=== PATIENT | male | born 1955 | race Caucasian/White ===

== ENCOUNTER 2017-10-11 09:24 | Inpatient (IN) ==
--- NOTE | 2017-10-11 10:20 | XR ---
EXAM DATE: 10/11/2017 10:04 AM EDT AGE/SEX: 62 years / Male INDICATIONS: . Chest pain. CLINICAL DATA: This is the patient's initial encounter. Patient reports that signs and symptoms have been present for 2 days and indicates a pain score of 8/10. MEDICAL/SURGICAL HISTORY: Chronic obstructive pulmonary disease. Myocardial infarction. . Card iac stent. COMPARISON: DEL, XR CHEST PA AND LAT, 01/09/2017. . FINDINGS: Linear atelectatic changes right base. The left lung is clear. The heart and pulmonary vascularity are normal. The portion of the bony skeleton visualized is unremarkable. CONCLUSION: Atelectatic changes right base, stable in the interval. Electronically signed by: David Lyons MD 10/11/2017 10:18 AM EDT
[2017-10-11 11:49] LABS: Anion Gap 12 meq/L (5-15); Blood Urea Nitrogen 13 mg/dL (7-18); Calcium 9.1 mg/dL (8.5-10.1); Carbon Dioxide 24.2 meq/L (21.0-32.0); Chloride 104 meq/L (98-107); Glomerular Filtration Rate 73 mL/min (>89); Glucose,Random 111 mg/dL (74-106); Potassium 3.9 meq/L (3.5-5.1); Sodium 140 meq/L (136-145)
[2017-10-11] MEDS ORDERED: Aspirin 325 MG Tablet PO ONE (12:14)
[2017-10-11 12:28] LABS: Albumin 3.9 g/dL (3.4-5.0); Magnesium 2.2 mg/dL (1.5-2.5)
[2017-10-11 12:30] LABS: Total Protein 7.4 g/dL (6.4-8.2)
[2017-10-11 13:02] LABS: Baso % (Auto) 0.5 % (0.0-2.0); Eos # (Auto) 0.1 th/mm3 (0.0-0.4); Eos % (Auto) 1.1 % (0.0-4.0); Hematocrit 37.1 % (39.0-51.0); Hemoglobin 13.1 gm/dL (13.0-17.0); Lymph # (Auto) 1.3 th/mm3 (1.0-4.8); Lymph % (Auto) 15.5 % (9.0-44.0); Mean Corpuscular HGB Conc 35.2 % (32.0-36.0); Mean Corpuscular Hemoglobin 29.6 pg (27.0-34.0); Mean Corpuscular Volume 84.1 fL (80.0-100.0); Mean Platelet Volume 8.5 fL (7.0-11.0); Mono # (Auto) 0.7 th/mm3 (0.0-0.9); Mono % (Auto) 7.9 % (0.0-8.0); Neut # (Auto) 6.5 th/mm3 (1.8-7.7); Platelet Count 214 th/mm3 (150-450); Red Blood Count 4.42 mil/mm3 (4.50-5.90); Red Cell Distribution Width 14.4 % (11.6-17.2); White Blood Count 8.6 th/mm3 (4.0-11.0)
[2017-10-11 13:11] LABS: Activated Partial Thrombo Time 21.4 sec (24.3-30.1); Prothrombin Time 10.4 sec (9.8-11.6)
--- NOTE | 2017-10-11 13:16 | ED ---
HPI General Chief Complaint: Chest Pain Stated Complaint: chest pain Time Seen by Provider: 10/11/17 12:09 Source: patient Mode of arrival: ambulatory Limitations: no limitations History of Present Illness HPI narrative: 62-year-old male states that he had chest pain yesterday and took 2 nitroglycerin this morning when it did not go away and he had a take 3 more he elected to come in. He denies any other concurrent complaints. 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 He states he took a baby aspirin this morning. Quality is pressure. Severity is moderate. He states that nitroglycerin does help his pain. He states his last cardiac workup was a heart catheterization in 2014 when he had a stent placed. MD complaint: chest pain Complete Quality Measures for STEMI Alert Patients STEMI Alert: No Onset (ago): day(s) Duration: intermittent Related Data Home Medications Medication Instructions Recorded Confirmed acetaminophen [Tylenol Extra 1,000 mg PO Q6H PRN 10/11/17 10/11/17 Strength] albuterol sulfate [Ventolin HFA] 2 puff INHALATION Q6H PRN 10/11/17 10/11/17 alprazolam [Xanax] 0.25 mg PO TID PRN 10/11/17 10/11/17 aspirin [Harriet Chewable Aspirin] 81 mg PO DAILY 10/11/17 10/11/17 budesonide-formoterol [Symbicort] 2 puff INHALATION Q12H 10/11/17 10/11/17 cholecalciferol (vitamin D3) 2,000 unit PO DAILY 10/11/17 10/11/17 [Vitamin D3] furosemide [Lasix] 80 mg PO DAILY 10/11/17 10/11/17 ipratropium-albuterol 3 ml INHALATION Q4-6H PRN 10/11/17 10/11/17 isosorbide mononitrate 30 mg PO BID 10/11/17 10/11/17 lactobacillus combination no.4 1 cap PO DAILY 10/11/17 10/11/17 [Probiotic] metoprolol succinate [Toprol XL] 50 mg PO DAILY 10/11/17 10/11/17 nitroglycerin 1 patch TRANSDERMAL DAILY 10/11/17 10/11/17 nitroglycerin [Nitrostat] 0.4 mg SUBLINGUAL Q5-15M PRN 10/11/17 10/11/17 oxybutynin chloride 5 mg PO TID 10/11/17 10/11/17 pantoprazole 40 mg PO DAILY 10/11/17 10/11/17 polyethylene glycol 3350 [Miralax] 17 g PO DAILY PRN 10/11/17 10/11/17 potassium chloride 10 meq PO DAILY 10/11/17 10/11/17 simvastatin 40 mg PO QPM 10/11/17 10/11/17 tamsulosin 0.4 mg PO BID 10/11/17 10/11/17 tiotropium bromide [Spiriva 2 puff INHALATION DAILY 10/11/17 10/11/17 Respimat] topiramate [Topamax] 25 mg PO DAILY 10/11/17 10/11/17 Allergies Allergy/AdvReac Type Severity Reaction Status Date / Time ciprofloxacin Allergy Severe Itching Verified 10/11/17 09:29 lamotrigine Allergy Severe Rash Verified 10/11/17 09:29 tramadol Allergy Severe Anaphylaxis Verified 10/11/17 12:14 gabapentin AdvReac Mild Itching Verified 10/11/17 12:14 Review of Systems ROS: all other systems reviewed are negative [facility] Social History Social History Substance History: No History of Abuse Second Hand Smoke Exposure: No Smoking Status: Former smoker Tobacco Type: Cigarettes How Often Do You Have a Drink Containing Alcohol: 2 to 3 times a week Recent Travel in [facility] within the Last 8 Weeks: No Recent Out of Country Travel within the Last 8 Weeks: No Immunization History Tetanus Immunization: Unsure Hx Influenza Vaccine This Season: No Exam Narrative Exam Narrative: GENERAL: 62 y/o male in no apparent distress SKIN: Focused skin assessment warm/dry. HEAD: Atraumatic. Normocephalic. EYES: Pupils equal and round. No scleral icterus. No injection or drainage. ENT: No nasal bleeding or discharge. Mucous membranes pink and moist. NECK: Trachea midline. CARDIOVASCULAR: Regular rate and rhythm. RESPIRATORY: No accessory muscle use. Clear to auscultation. Breath sounds equal bilaterally. GASTROINTESTINAL: Abdomen soft, non-tender, nondistended. MUSCULOSKELETAL: No obvious deformities. No clubbing. No cyanosis. NEUROLOGICAL: Awake and alert. Motor grossly within normal limits. Normal speech. PSYCHIATRIC: Appropriate mood and affect; insight and judgment normal. Course Reevaluation(s) Reevaluation #1: Patient feeling better, agrees to chest pain center observation Initial Documented Vital Signs Temperature 98.2 F 10/11/17 09:27 Pulse Rate 104 H 10/11/17 09:27 Respiratory Rate 20 10/11/17 09:27 Blood Pressure 136/69 10/11/17 09:27 Pulse Oximetry 95 10/11/17 09:27 Last Documented Vital Signs Temperature 97.6 F 10/11/17 12:14 Pulse Rate 85 10/11/17 13:57 Respiratory Rate 16 10/11/17 13:57 Blood Pressure 138/69 10/11/17 13:57 Pulse Oximetry 97 10/11/17 13:57 Medical Decision Making MDM Narrative Medical decision making narrative: Will check blood work, imaging and dose with aspirin and nitroglycerin and reevaluate Medical Screen Exam Complete: Yes Emergency Medical Condition: Yes Differential Diagnosis Differential Diagnosis: ACS, musculoskeletal, stent occlusion, gastritis Lab Data Lab results reviewed: Yes I reviewed the patient's lab results. Result diagrams: 10/11/17 12:25 10/11/17 10:33 Lab Results 10/11/17 10/11/17 10/11/17 Range/Units 10:33 10:33 12:25 WBC 8.6 (4.0-11.0) th/mm3 RBC 4.42 L (4.50-5.90) mil/mm3 Hgb 13.1 (13.0-17.0) gm/dL Hct 37.1 L (39.0-51.0) % MCV 84.1 (80.0-100.0) fL MCH 29.6 (27.0-34.0) pg MCHC 35.2 (32.0-36.0) % RDW 14.4 (11.6-17.2) % Plt Count 214 (150-450) th/mm3 MPV 8.5 (7.0-11.0) fL Neut % (Auto) 75.0 H (16.0-70.0) % Lymph % (Auto) 15.5 (9.0-44.0) % Worth % (Auto) 7.9 (0.0-8.0) % Eos % (Auto) 1.1 (0.0-4.0) % Baso % (Auto) 0.5 (0.0-2.0) % Neut # (Auto) 6.5 (1.8-7.7) th/mm3 Lymph # (Auto) 1.3 (1.0-4.8) th/mm3 Worth # (Auto) 0.7 (0.0-0.9) th/mm3 Eos # (Auto) 0.1 (0.0-0.4) th/mm3 Baso # (Auto) 0.0 (0.0-0.2) th/mm3 WBC Differential . Differential Comment Auto diff final PT (9.8-11.6) sec INR Ratio APTT (24.3-30.1) sec Sodium 140 (136-145) meq/L Potassium 3.9 (3.5-5.1) meq/L Chloride 104 (98-107) meq/L Carbon Dioxide 24.2 (21.0-32.0) meq/L Anion Gap 12 (5-15) meq/L BUN 13 (7-18) mg/dL Creatinine 1.03 (0.60-1.30) mg/dL Estimated GFR 73 L (>89) mL/min Random Glucose 111 H (74-106) mg/dL Calcium 9.1 (8.5-10.1) mg/dL Magnesium 2.2 (1.5-2.5) mg/dL Total Bilirubin 0.6 (0.2-1.0) mg/dL Direct Bilirubin 0.1 (0.0-0.2) mg/dL Indirect Bilirubin 0.5 (0.0-0.8) mg/dL AST 20 (15-37) U/L ALT 37 (12-78) U/L Alkaline Phosphatase 59 (45-117) U/L Total Creatine Kinase 63 (39-308) U/L Troponin I Less than 0.02 L (0.02-0.05) ng/mL B-Natriuretic Peptide (0-100) pg/mL Total Protein 7.4 (6.4-8.2) g/dL Albumin 3.9 (3.4-5.0) g/dL 10/11/17 10/11/17 Range/Units 12:25 12:25 WBC (4.0-11.0) th/mm3 RBC (4.50-5.90) mil/mm3 Hgb (13.0-17.0) gm/dL Hct (39.0-51.0) % MCV (80.0-100.0) fL MCH (27.0-34.0) pg MCHC (32.0-36.0) % RDW (11.6-17.2) % Plt Count (150-450) th/mm3 MPV (7.0-11.0) fL Neut % (Auto) (16.0-70.0) % Lymph % (Auto) (9.0-44.0) % Worth % (Auto) (0.0-8.0) % Eos % (Auto) (0.0-4.0) % Baso % (Auto) (0.0-2.0) % Neut # (Auto) (1.8-7.7) th/mm3 Lymph # (Auto) (1.0-4.8) th/mm3 Worth # (Auto) (0.0-0.9) th/mm3 Eos # (Auto) (0.0-0.4) th/mm3 Baso # (Auto) (0.0-0.2) th/mm3 WBC Differential Differential Comment PT 10.4 (9.8-11.6) sec INR 1.0 Ratio APTT 21.4 L (24.3-30.1) sec Sodium (136-145) meq/L Potassium (3.5-5.1) meq/L Chloride (98-107) meq/L Carbon Dioxide (21.0-32.0) meq/L Anion Gap (5-15) meq/L BUN (7-18) mg/dL Creatinine (0.60-1.30) mg/dL Estimated GFR (>89) mL/min Random Glucose (74-106) mg/dL Calcium (8.5-10.1) mg/dL Magnesium (1.5-2.5) mg/dL Total Bilirubin (0.2-1.0) mg/dL Direct Bilirubin (0.0-0.2) mg/dL Indirect Bilirubin (0.0-0.8) mg/dL AST (15-37) U/L ALT (12-78) U/L Alkaline Phosphatase (45-117) U/L Total Creatine Kinase (39-308) U/L Troponin I (0.02-0.05) ng/mL B-Natriuretic Peptide 12 (0-100) pg/mL Total Protein (6.4-8.2) g/dL Albumin (3.4-5.0) g/dL Imaging Data Attestation: I personally reviewed and interpreted this imaging study as follows : Radiologist's impression: Chest X-Ray 10/11/17 09:30 CONCLUSION: Atelectatic changes right base, stable in the interval. Discharge Plan Discharge Disposition Patient Disposition: 30 Still Patient Discharge Details Diagnosis: Chest pain Physicians Team ED Provider: Damari Wilson Primary Care Provider: NON STAFF,PROVIDER Attending Provider: Jarrett Watters Discharge Interventions Interventions: Vital Signs Last Done: 10/11/17 13:57 Status ED Status: Admitted Observation Patient
[2017-10-11] MEDS ORDERED: Polyethylene Glycol 3350 17 GM Packet PO PRN (16:34)
[2017-10-11] MEDS ORDERED: Nitroglycerin SL (Override) 0.4 MG Tab SL PRN (16:34)
[2017-10-11] MEDS ORDERED: Heparin Drip 25,000 UNIT/250 ML BAG IV.CONT PRN (17:07)
[2017-10-11] MEDS ORDERED: Heparin 10,000 UNITS/10 ML Vial (for IV use) IV.PUSH STA (17:07)
[2017-10-11] MEDS ORDERED: TIROFIBAN BOLUS IV.PUSH ONE (17:10)
[2017-10-11] MEDS ORDERED: Morphine Sulfate Inj 8 MG/ML Vial IV.PUSH ONE (17:11)
[2017-10-11] MEDS ORDERED: Morphine Sulfate Inj 8 MG/ML Vial IV.PUSH PRN (17:13)
[2017-10-11] MEDS ORDERED: Aspirin 325 MG Tablet PO SCH (17:15)
[2017-10-11] MEDS ORDERED: fentaNYL Citrate Inj 100 MCG/2 ML Ampul IV.PUSH SCH (17:15)
[2017-10-11 17:44] LABS: Creatine Kinase 57 U/L (39-308)
--- NOTE | 2017-10-11 18:31 | P.HPIM ---
History of Present Illness Primary Care Physician: PROVIDER NON STAFF History of Present Illness: Mr. Jackson is a 62-year-old male. He has a past history of coronary artery disease and 5 stents. COPD is present at baseline. No recent exacerbation of COPD. He comes into the emergency department with complaints of approximately 36 hours of unstable angina with recurrent central chest pain which is relieved quickly by nitro arrest but keeps coming back. Is a strong family history of both parents and a brother having coronary artery disease. When seen in the ER he still has intermittent chest pain. Potential for heart cath tonight or tomorrow morning based on symptoms. Fluid nitroglycerin, heparin, and morphine are being initiated to attempt pain control. - Diagnosis (1) Unstable angina (2) Chest pain Inpatient Certification: I certify that the inpatient services were ordered in accordance with Medicare regulations governing the order. This includes certification that hospital inpatient services are reasonable and necessary and in the case of services not specified as inpatient-only under 42 CFR 419.22(n), that they are appropriately provided as inpatient services in accordance to with the 2-midnight benchmark under 43 CFR 412.3(e) Estimated Total Length of Stay (Days): 2 Plans for Post Hospital Care: Home Review of Systems Constitutional: No fevers, no chills no night sweats, no fatigue, no weakness Eyes: No eye pain, no blurry vision, no loss of vision ENT: No sore throat, no ear pain, no rhinorrhea Cardiovascular: Positive chest pain, no tachycardia, no palpitations, no shortness of breath, no syncope Respiratory: No wheezing, no cough, no shortness of breath Gastrointestinal: No abdominal pain, no black tarry stools, no bright red blood per rectum, no vomiting, no diarrhea Musculoskeletal: No joint pain, no muscle cramps, no stiffness Integumentary: No rash, no ulcers, no drainage Neurologic: No sensory loss, no loss of motor function, no dizziness Psychiatric: No behavioral changes, no hallucinations, no suicidal ideations [facility] - History History Provided By: Patient, Family Member - Medical History Medical History: Medical History (Last Updated 10/11/17 @ 18:24 by Aayush Good MD) COPD (chronic obstructive pulmonary disease) Coronary artery disease Old [place] (myocardial infarction) - Surgical History Surgical History: Surgical History (Last Updated 10/11/17 @ 18:25 by Aayush Good MD) History of coronary artery stent placement - Family History Family History: Family History (Last Updated 10/11/17 @ 18:26 by Aayush Good MD) Mother Coronary artery disease Brother Coronary artery disease Father Coronary artery disease - Tobacco History Second Hand Smoke Exposure: No Tobacco Use In Past 30 Days: No Smoking Status: Former smoker Tobacco Type: Cigarettes - Alcohol History How Often Do You Have a Drink Containing Alcohol: 2 to 3 times a week - Substance Use History Substance History: No History of Abuse - Travel History Recent Travel in the [place] Within the Last 8 Weeks: No Recent Travel Out of the Country Within the Last 8 Weeks: No - Immunization History Tetanus Immunization: Unsure Hx Influenza Vaccine This Season: No Medications and Allergies Active Medications: Active Medications Acetaminophen (Tylenol) 1,000 mg PO Q6H PRN PRN Reason: Pain/Temp Elevation Al Hydroxide/Mg Hydroxide (Milk Of [place]) 30 ml PO Q12H PRN PRN Reason: Mild Constipation Albuterol (Duoneb Neb (Prn)) 1 ampul NEB Q4HR NEB PRN PRN Reason: SHORTNESS OF BREATH/WHEEZING Albuterol (Duoneb Neb (Prn)) ampul INH Q4-6H PRN PRN Reason: Shortness Of Breath Alprazolam (Xanax) 0.25 mg PO TID PRN PRN Reason: Anxiety Aspirin (Aspirin) 325 mg PO DAILY ON LICENSE OF [facility] Aspirin (Aspirin Chew) 81 mg PO DAILY ON LICENSE OF [facility] Aspirin (Aspirin) 325 mg PO [employer] SAL[employer] ON LICENSE OF [facility] Stop: 10/15/17 17:14 Budesonide/Formoterol Fumarate (Symbicort 160/4.5 Mcg Inh) 2 puff INH Q12H ON LICENSE OF [facility] Fentanyl Citrate (Fentanyl Inj) 50 mcg IV.PUSH [employer] BIB Stop: 10/15/17 17:14 Furosemide (Lasix) 80 mg PO DAILY ON LICENSE OF [facility] Heparin Sodium (Porcine) (Heparin Inj) 4,000 units IV.PUSH NOW STA Stop: 10/11/17 17:08 Sodium Chloride (Ns Inj) 1,000 mls @ 100 mls/hr IV.CONT .Q10H ON LICENSE OF [facility] Tirofiban/Sodium Chloride 2, (825 mcg/ Syringe/Bag) 56.5 mls @ 678 mls/hr IV.PUSH ONCE ONE Stop: 10/11/17 17:11 Tirofiban/Sodium Chloride (Aggrastat Inj) 12,500 mcg in 250 mls @ 0 mls/hr IV.CONT .Q0M BIB; Protocol Heparin Sodium/Dextrose (Heparin/D5w 25,000 U/250 Ml) 25,000 unit in 250 mls @ 0 mls/hr IV.CONT TITRATE PRN; Protocol PRN Reason: Per Protocol Nitroglycerin/Dextrose (Nitroglycerin Drip Premix) 50 mg in 250 mls @ 0 mls/hr IV.CONT TITRATE PRN; Protocol PRN Reason: Per Protocol Metoprolol Succinate (Toprol Xl) 50 mg PO DAILY ON LICENSE OF [facility] Midazolam HCl (Versed Inj) 1 mg IV.PUSH [employer] SAL[employer] BIB Stop: 10/15/17 17:14 Morphine Sulfate (Morphine Inj) 5 mg IV.PUSH ONCE ONE Stop: 10/11/17 17:12 Morphine Sulfate (Morphine Inj) 5 mg IV.PUSH Q2H PRN PRN Reason: CHEST PAIN Nitroglycerin (Nitrostat Sl) 0.4 mg SL Q5M PRN PRN Reason: CHEST PAIN Last Admin: 10/11/17 16:44 Dose: 0.4 mg Nitroglycerin (Nitrostat Sl (Override)) 0.4 mg SL Q5-15M PRN PRN Reason: Chest Pain Non-Formulary Medication (Cholecalciferol (Vitamin D3) [Vitamin D3]) 2,000 unit PO DAILY ON LICENSE OF [facility] Non-Formulary Medication (Lactobacillus Combination No.4 [Probiotic]) 1 cap PO DAILY ON LICENSE OF [facility] Non-Formulary Medication (Simvastatin [Simvastatin]) 40 mg PO QPM ON LICENSE OF [facility] Non-Formulary Medication (Tiotropium [place] [Spiriva Respimat]) 2 puff INHALATION DAILY ON LICENSE OF [facility] Non-Formulary Medication (Albuterol Sulfate) 2 puff INHALATION Q6H PRN PRN Reason: Shortness Of Breath Ondansetron HCl (Zofran Inj) 4 mg IV.PUSH Q6H PRN PRN Reason: NAUSEA Ondansetron HCl (Zofran Inj) 4 mg IV.PUSH Q6H PRN PRN Reason: NAUSEA OR VOMITING Oxybutynin Chloride (Ditropan) 5 mg PO TID ON LICENSE OF [facility] Pantoprazole Sodium (Protonix) 40 mg PO DAILY ON LICENSE OF [facility] Polyethylene Glycol (Miralax) 17 gm PO DAILY PRN PRN Reason: Constipation Potassium Chloride (Klor-Con 10) 10 meq PO DAILY ON LICENSE OF [facility] Sodium Chloride (Ns Flush) 2 ml IV.FLUSH PRN PRN PRN Reason: FLUSH AFTER USING IV ACCESS Sodium Chloride (Ns Flush) 2 ml IV.FLUSH BID ON LICENSE OF [facility] Tamsulosin HCl (Flomax) 0.4 mg PO BID ON LICENSE OF [facility] Topiramate (Topamax) 25 mg PO DAILY ON LICENSE OF [facility] Allergies Allergy/AdvReac Type Severity Reaction Status Date / Time ciprofloxacin Allergy Severe Itching Verified 10/11/17 09:29 lamotrigine Allergy Severe Rash Verified 10/11/17 09:29 tramadol Allergy Severe Anaphylaxis Verified 10/11/17 12:14 gabapentin AdvReac Mild Itching Verified 10/11/17 12:14 Home Medications Medication Instructions Recorded Confirmed Type acetaminophen [Tylenol Extra 1,000 mg PO Q6H PRN 10/11/17 10/11/17 History Strength] albuterol sulfate [Ventolin HFA] 2 puff INHALATION Q6H PRN 10/11/17 10/11/17 History alprazolam [Xanax] 0.25 mg PO TID PRN 10/11/17 10/11/17 History aspirin [Harriet Chewable Aspirin] 81 mg PO DAILY 10/11/17 10/11/17 History budesonide-formoterol [Symbicort] 2 puff INHALATION Q12H 10/11/17 10/11/17 History cholecalciferol (vitamin D3) 2,000 unit PO DAILY 10/11/17 10/11/17 History [Vitamin D3] furosemide [Lasix] 80 mg PO DAILY 10/11/17 10/11/17 History ipratropium-albuterol 3 ml INHALATION Q4-6H PRN 10/11/17 10/11/17 History isosorbide mononitrate 30 mg PO BID 10/11/17 10/11/17 History lactobacillus combination no.4 1 cap PO DAILY 10/11/17 10/11/17 History [Probiotic] metoprolol succinate [Toprol XL] 50 mg PO DAILY 10/11/17 10/11/17 History nitroglycerin 1 patch TRANSDERMAL DAILY 10/11/17 10/11/17 History nitroglycerin [Nitrostat] 0.4 mg SUBLINGUAL Q5-15M PRN 10/11/17 10/11/17 History oxybutynin chloride 5 mg PO TID 10/11/17 10/11/17 History pantoprazole 40 mg PO DAILY 10/11/17 10/11/17 History polyethylene glycol 3350 [Miralax] 17 g PO DAILY PRN 10/11/17 10/11/17 History potassium chloride 10 meq PO DAILY 10/11/17 10/11/17 History simvastatin 40 mg PO QPM 10/11/17 10/11/17 History tamsulosin 0.4 mg PO BID 10/11/17 10/11/17 History tiotropium bromide [Spiriva 2 puff INHALATION DAILY 10/11/17 10/11/17 History Respimat] topiramate [Topamax] 25 mg PO DAILY 10/11/17 10/11/17 History Exam Vital signs: Vital Signs 10/11/17 09:27 10/11/17 12:14 10/11/17 13:57 Temperature 98.2 F 97.6 F Pulse Rate 104 H 79 85 Respiratory Rate 20 16 16 Blood Pressure 136/69 138/69 Pulse Oximetry 95 97 10/11/17 15:42 Temperature Pulse Rate 85 Respiratory Rate 16 Blood Pressure Pulse Oximetry Intake & Output 10/10/17 10/11/17 10/11/17 18:59 06:59 18:59 Weight 113.398 kg Narrative: GENERAL: NAD, A&Ox3 HEAD: Normocephalic. NECK: Supple, trachea midline. No lymphadenopathy. EYES: No scleral icterus. No injection or drainage. CARDIOVASCULAR: Regular rate and rhythm without murmurs, gallops, or rubs. RESPIRATORY: Breath sounds equal bilaterally. No accessory muscle use. GASTROINTESTINAL: Abdomen soft, non-tender, nondistended. MUSCULOSKELETAL: No cyanosis, or edema. SKIN: Warm and dry. NEURO: No focal neurological deficits. Results - Labs CBC & Chem 7: 10/11/17 12:25 10/11/17 10:33 Labs: Short CBC 10/11/17 Range/Units 12:25 WBC 8.6 (4.0-11.0) th/mm3 Hgb 13.1 (13.0-17.0) gm/dL Hct 37.1 L (39.0-51.0) % Plt Count 214 (150-450) th/mm3 BMP 10/11/17 10:33 Sodium 140 Potassium 3.9 Chloride 104 Carbon Dioxide 24.2 BUN 13 Creatinine 1.03 Calcium 9.1 Cardiac Enzymes 10/11/17 10/11/17 10/11/17 Range/Units 10:33 10:33 15:30 Total Creatine Kinase 63 57 (39-308) U/L Troponin I Less than 0.02 L Less than 0.02 L (0.02-0.05) ng/mL Liver Function 10/11/17 Range/Units 10:33 Total Bilirubin 0.6 (0.2-1.0) mg/dL Direct Bilirubin 0.1 (0.0-0.2) mg/dL AST 20 (15-37) U/L ALT 37 (12-78) U/L Alkaline Phosphatase 59 (45-117) U/L Albumin 3.9 (3.4-5.0) g/dL - Imaging Impressions Chest X-Ray 10/11/17 09:30 CONCLUSION: Atelectatic changes right base, stable in the interval. Caprini VTE Risk Assessment Caprini VTE Risk Assessment: No/Low Risk (score <= 1) Caprini Risk Assessment Model: Point Value = 1 Point Value = 2 Point Value = 3 Point Value = 5 Age 41-60 Minor surgery BMI > 25 kg/m2 Swollen legs Varicose veins or History of unexplained or recurrent spontaneous Oral contraceptives or hormone replacement Sepsis (< 1 month) Serious lung disease, including pneumonia (< 1 month) Abnormal pulmonary function Acute myocardial infarction Congestive heart failure (< 1 month) History of inflammatory bowel disease Medical patient at bed rest Age 61-74 Arthroscopic surgery Major open surgery (> 45 min) Laparoscopic surgery (> 45 min) Malignancy Confined to bed (> 72 hours) Immobilizing plaster cast Central venous access Age >= 75 History of VTE Family history of VTE Factor V Leiden Prothrombin [id number] Lupus anticoagulant Anticardiolipin antibodies Elevated serum homocysteine Heparin-induced thrombocytopenia Other congenital or acquired thrombophilia Stroke (< 1 month) Elective arthroplasty Hip, pelvis, or leg fracture Acute spinal cord injury (< 1 month) Prophylaxis Regimen: Total Risk Factor Score Risk Level Prophylaxis Regimen 0-1 Low Early ambulation 2 Moderate Order ONE of the following: *Sequential Compression Device (SCD) *Heparin 5000 units SQ BID 3-4 Higher Order ONE of the following medications: *Heparin 5000 units SQ TID *Enoxaparin/Lovenox 40 mg SQ daily (WT < 150 kg, CrCl > 30 mL/min) *Enoxaparin/Lovenox 30 mg SQ daily (WT < 150 kg, CrCl > 10-29 mL/min) *Enoxaparin/Lovenox 30 mg SQ BID (WT < 150 kg, CrCl > 30 mL/min) AND/OR *Sequential Compression Device (SCD) 5 or more Highest Order ONE of the following medications: *Heparin 5000 units SQ TID (Preferred with Epidurals) *Enoxaparin/Lovenox 40 mg SQ daily (WT < 150 kg, CrCl > 30 mL/min) *Enoxaparin/Lovenox 30 mg SQ daily (WT < 150 kg, CrCl > 10-29 mL/min) *Enoxaparin/Lovenox 30 mg SQ BID (WT < 150 kg, CrCl > 30 mL/min) AND *Sequential Compression Device (SCD) Assessment and Plan - Assessment (1) Unstable angina Code(s): I20.0 - Unstable angina Status: Acute (2) Chest pain Code(s): R07.9 - Chest pain, unspecified Status: Acute - Plan 62-year-old male admitted secondary to unstable angina Chest pain Unstable angina Coronary artery disease History of coronary artery stents 5 Evaluate for ACS Follow cardiac enzymes Aspirin daily When necessary oxygen When necessary morphine for pain. When necessary nitroglycerin Follow on telemetry Cardiology consult Plan for heart cath Continue heparin BPH Continue baseline treatments COPD No exacerbation Continue baseline treatments DVT prophylaxis Heparin (2) Chest pain Qualifiers: Chest pain type: unspecified Qualified Code(s): R07.9 - Chest pain, unspecified
--- NOTE | 2017-10-11 19:17 | MB ---
cc: Mario Bravo MD DATE: 10/11/2017 REASON FOR CONSULTATION: Unstable angina. HISTORY OF PRESENT ILLNESS: The patient is a 62-year-old white male with history of coronary artery disease, hypertension, hyperlipidemia, benign prostatic hypertrophy, COPD, sleep apnea, possible seizure disorder, who presented to the hospital today with complaints of increasing chest discomfort. The patient states he had a minor GI bleed earlier this month, necessitating hospitalization at [facility], and it was felt that the bleed was due to constipation and excessive straining. He did not require blood transfusion and he has not noted any bright red blood per rectum since that time. However, they did take him off Plavix, which he has been on for 3 years. Yesterday, he began to experience a left parasternal and left inframammary chest discomfort without associated increased shortness of breath, nausea or diaphoresis. The chest discomforts have been usually promptly responsive to sublingual nitroglycerin. He has taken multiple sublingual nitroglycerin in the past 24 hours. The chest discomforts have been usually lasting up to 15 minutes, although his current episode started about an hour ago. He denies syncope or near syncope, but has felt mildly lightheaded at times. The patient also denies pedal edema, paroxysmal nocturnal dyspnea. Rarely he experiences fleeting fluttering, palpitations. PAST MEDICAL HISTORY: 1. Coronary artery disease, status post stent of the mid LAD approximately 10/[address] at [facility] by Dr. Wing Germaine Kumar. The patient underwent another cardiac catheterization 12/05/[address] Kumar showing 30% mid right coronary artery disease, normal left main, patent mid LAD stent, 40% mid LAD disease distal to the stent, 85% mid left circumflex, which was stented with a 3.0 mm Resolute stent, which extended into a fairly large caliber obtuse marginal. Ejection fraction was 60%. The patient had recurrent symptoms and underwent repeat stenting of the mid left circumflex, extending into the more distal left circumflex with a 2.5 mm Resolute 12/11/2014. 2. Hypertension. 3. Hyperlipidemia. 4. Benign prostatic hypertrophy. 5. COPD. 6. Sleep apnea. 7. Seizure disorder. 8. Right lower extremity cellulitis 2014. PAST SURGICAL HISTORY: 1. Eight hernia repairs. 2. Transurethral resection of the prostate. 3. Appendectomy. 4. Cholecystectomy. CARDIAC MEDICATIONS AT HOME: 1. Simvastatin 40 mg at bedtime. 2. Potassium chloride 10 mEq daily. 3. Furosemide 80 mg daily. 4. Aspirin 81 mg daily. 5. Toprol-XL 50 mg daily. 6. Isosorbide mononitrate 30 mg b.i.d. 7. Transderm nitroglycerin patch, unknown dose daily. 8. P.r.n. sublingual nitroglycerin. ALLERGIES: 1. CIPRO. 2. TRAMADOL 3. GABAPENTIN. 4. LAMICTAL. FAMILY HISTORY: Both parents sustained myocardial infarctions in their 50s and 60s subsequently passing away from cardiac disease in their 70s. SOCIAL HISTORY: The patient quit smoking about 2001. He denies alcohol abuse. REVIEW OF SYSTEMS: As in history of present illness, otherwise negative or noncontributory. He also currently denies headache, except with nitroglycerin administration, melena, dyspepsia, bright red blood per rectum, fevers, wheezing. PHYSICAL EXAMINATION: VITAL SIGNS: Blood pressure 138/69 with a pulse of 85, respirations 16. GENERAL: He is a well-developed, well-nourished white male, in no acute distress. NECK: Jugular venous pressure is normal. Carotid pulses are 2+ bilaterally without bruits. CHEST: Reveals clear lungs grijalva. CARDIAC: He has a regular rhythm and rate without S3, S4 or murmurs. ABDOMEN: He has a soft, nontender abdomen. Bowel sounds are present. There is no definite hepatosplenomegaly. EXTREMITIES: Reveals no clubbing, cyanosis or edema. DIAGNOSTIC DATA: EKG shows normal sinus rhythm, normal EKG. Chest x-ray shows no acute disease. LABORATORY DATA: Includes hemoglobin 13.1, WBC 8.6, platelets 214. BUN 13, creatinine 1.03, potassium 3.9. CK 63. Troponin less than 0.02. Chest x-ray shows no acute disease. IMPRESSION: Symptoms most suggestive of unstable angina in this 62-year-old white male with a history of coronary artery disease, status post a number of percutaneous coronary interventions in [address] Shannon Kumar, history of hypertension, hyperlipidemia, COPD, sleep apnea, seizure disorder. Cardiac enzymes are negative for myocardial infarction, although he has had no episodes lasting more than 10-15 minutes. EKG is normal. Clinical suspicion for pulmonary embolism or aortic dissection is extremely low. I suspect he has severely restenosed one or both stents in his left circumflex system. Because of the unstable nature of his symptoms, he has been recommended cardiac catheterization with possible percutaneous coronary intervention. The nature of these procedures and potential risks including, but not limited to , myocardial infarction, stroke, arrhythmia, bleeding, infection, and renal failure have been outlined to the patient. He agrees to proceed. RECOMMENDATIONS: 1. Initiate nitroglycerin, Aggrastat, and heparin drips this evening. 2. PRN morphine. 3. Cardiac catheterization tomorrow, sooner if his chest discomfort is not relieved in the next hour or so. 4. Continue his usual home cardiac medications except for the oral nitrates. Mario Bravo MD GHR/ct , 05:03 PM , 05:17 PM JANA
[2017-10-11] MEDS ORDERED: Morphine Inj 4 MG/ML Vial ONE ×2 (19:50→23:26)
[2017-10-11] MEDS: Morphine Inj 4 MG/ML Vial IV.PUSH PRN ×2 (20:01→23:40)
[2017-10-11] MEDS: Nitroglycerin Drip Premix 50 MG/250 ML BOTTLE IV.CONT PRN (20:03)
[2017-10-11 20:22] LABS: Creatine Kinase 60 U/L (39-308)
[2017-10-11] MEDS ORDERED: Heparin - SQ 10,000 UNITS/ML Vial SQ SCH (21:00)
[2017-10-11] MEDS ORDERED: Isosorbide Mononitrate 30 MG ER 24HR Tablet (Imdur) PO SCH (21:00)
--- NOTE | 2017-10-11 21:20 | ECG ---
Date Performed: 10/11/2017 Time Performed: 09:37:00 PTAGE: 62 years EKG: Sinus rhythm POSSIBLE LEFT ATRIAL ENLARGEMENT BORDERLINE ECG PREVIOUS TRACING : 03/02/2015 20.10 Since the previous tracing, no significant change noted DOCTOR: Ernie Serrano Interpretating Date/Time 10/11/2017 21:18:05
[2017-10-11] MEDS: Sod Chloride 0.9% Inj 1,000 ML IV.CONT SCH (21:56)
[2017-10-11] MEDS: Budesonide-Formoterol 160/4.5 MCG 6 GM Inhaler INH SCH (21:57)
[2017-10-11] MEDS: Tirofiban Inj 12,500 MCG/250 ML PLAST..BAG IV.CONT SCH (21:58)
[2017-10-11] MEDS: ALPRAZolam 0.25 MG Tablet PO PRN (23:41)
[2017-10-12] MEDS: Acetaminophen 500 MG Tablet PO PRN (03:36)
[2017-10-12] MEDS ORDERED: Morphine Inj 4 MG/ML Vial ONE (06:31)
[2017-10-12] MEDS ORDERED: Morphine Sulfate Inj 2 MG/ML Vial ONE (06:31)
[2017-10-12] MEDS: Morphine Inj 4 MG/ML Vial IV.PUSH PRN (06:38)
[2017-10-12] MEDS ORDERED: Heparin/NS PF Inj 1,000 ML ONE (07:24)
--- NOTE | 2017-10-12 07:54 | ECG ---
Date Performed: 10/11/2017 Time Performed: 15:39:12 PTAGE: 62 years EKG: Sinus rhythm NORMAL ECG Since PREVIOUS TRACING , no significant change noted DOCTOR: Ghada Sal Interpretating Date/Time 10/12/2017 07:52:57
--- NOTE | 2017-10-12 07:59 | ECG ---
Date Performed: 10/11/2017 Time Performed: 19:34:24 PTAGE: 62 years EKG: Sinus rhythm NORMAL ECG Since PREVIOUS TRACING , no significant change noted PREVIOUS TRACIN10/11/2017 15.39 DOCTOR: Ghada Sal Interpretating Date/Time 10/12/2017 07:58:43
[2017-10-12] MEDS: Sod Chloride 0.9% Inj 1,000 ML IV.CONT SCH ×4 (08:07→23:32)
[2017-10-12] MEDS: Budesonide-Formoterol 160/4.5 MCG 6 GM Inhaler INH SCH ×2 (08:27→17:09)
[2017-10-12] MEDS ORDERED: Adenosine Stress Test 90 MG/30 ML Vial IV.SIG ONE (08:50)
[2017-10-12] MEDS ORDERED: Tiotropium Bromide 18 MCG/ACT Inhaler INH SCH (09:00)
[2017-10-12] MEDS ORDERED: Aspirin 325 MG Tablet PO SCH (09:00)
[2017-10-12] MEDS ORDERED: Atropine Inj 1 MG/ML Vial IV.PUSH PRN (09:13)
[2017-10-12] MEDS ORDERED: Lidocaine 1% Inj 50 ML Vial INFILTRATN PRN (09:13)
--- NOTE | 2017-10-12 09:15 | CATHPROC ---
[facility] HIS Report Study Information Study Number Admission Scheduled Start Study Start [id number] Oct 11 2017 4:36PM 10/12/2017 Oct 12 2017 7:18AM [place] [facility] Cath Endovascular Study Admit Source Facility Department Emergency department [facility] - Relay Tester Physician and Clinical Staff Initial Mario Segal Legal Paraprofessional Yanna Wells,RN Recorder Leslie Goldsmith ,RT(R) Scrub Elton Nichols RCIS(BS) Procedures Performed Procedure Location (Site) Vessel Name Coronary Angiograms LCA Left Coronary Coronary Angiograms RCA Right Coronary Drug Eluting Inflatio LAD Prox Left Coronary L Heart Cath LV Gram-hand inj. LV LV Ventricle Equipment Time Fire Extinguisher Sprinkler Inspector Description Size Mfg Part Number Used/Scraped TRANSDUCER, TRUWAVE [id number] 07:20 BAUER GAGE * Used W/STOCKCOCK *[id number] *[id number] [id number] *[id number] *[id number] *[id number] 07:20 [employer] BLANKET,WARM AIR CCL * Used *[id number] 07:20 [employer] PACK, CCL CUSTOM * Used *[id number] 07:20 [employer] PACER PEN, SKIN DUAL W/ RULER * Used *[id number] 08:58 [employer] STENT, 3.0 8MM MIRTHA 3.0 8MM Used *[id number] 09:00 [employer] 30 DEBBIE INDEFLATOR Used *[id number] 07:20 [employer] MEDICAL SHEATH, FR6.5 PRELUDE 11CM FR 6.5 038ACT Used *[id number] 07:20 [employer] MEDICAL WIRE, 3MMJ .035 180CM 180CM Used *[id number] 07:20 NAMIC MANIFOLD, 4 PORT * Used *[id number] 07:20 [employer] OMNIPAQUE, 350 MG, 150ML 150ML [id number] Used [id number] 08:40 [employer] PRIME WIRE, VERRATA 185CM 185CM Used *[id number] Equipment Model, Serial, Lot Number and Expiration Data Description Model Number Serial Number Lot Number Expiration Date STENT, 3.0 8MM MIRTHA [id number] 05-23-2019 History: Current Medications Medication Dosage/Unit Route Frequency Last Date/Time Taken Beta Sylvain Statins (any) History: Allergies Allergy Reaction ciprofloxacin Itching lamotrigine Rash tramadol Anaphylaxis gabapentin Itching History: Risk Factors Family History of Hypertension Dyslipidemia Previous PR Previous Heart Failure Premature CAD Yes Yes Yes Yes No Prior Valve Prior PCI Prior PCIDate Prior CABG Surgery No Yes 12/11/2014 No Cerebrovascular Peripheral Artery Chronic Lung On Dialysis Diabetes Disease Disease Disease No No No Yes No History: Stress Tests Stress or Imaging Studies Performed No History: Other Disease Selection Items CAD COPD HTN History: PR/CV Data Previous Cath Date 12/11/2014 History: Other Current Smoker Method Quit No Cigarettes 16 Years Ago Labs Hgb (g/dl) Hct (%) WBC (l/cumm) Platelets (thousands) 11.60-17.00 35.00-51.00 4.00-11.00 150.00-450.00 13.1 37.1 8.6 214 Glucose (mg/dl) BUN (mg/dl) Creatinine (mg/dl) BUN:Creatinine (1:x) 74.00-106.00 7.00-18.00 0.50-1.30 10.00-20.00 111 13 1.0 13 Na (meq/l) K (meq/l) 136.00-145.00 3.50-5.10 140 3.9 INR (PTT:PT) 0.90-1.10 1 Troponin I (ng/ml) Troponin T (ng/ml) 0.02-0.05 0.40-2.10 0.02 0.02 Medication Medication Total Dose (Bolus/Oral) Medication Total Dosage/Unit 1% XYLOCAINE 15 mL ASPIRIN 81 mg BRILINTA 180 mg FENTANYL 50 mcg HEPARIN 6700 units OXYGEN 2 l/min VERSED 2 mg ZOFRAN 4 mg Medications (Bolus/Oral) Medication Time Given Dosage/Unit Administered By Reason 1% XYLOCAINE 10/12/2017 8:33:05 AM 15 mL Mario Bravo 15 mL 1% XYLOCAINE given in lab by Mario Bravo in Right Groin via Subcutaneous. Ordered by Mg Bravo enn. VERSED 10/12/2017 8:33:50 AM 2 mg Yanna Wells 2 mg VERSED given in lab by Yanna Wells RN in Left Wrist via Peripheral IV. Ordered by Sun Bravo. FENTANYL 10/12/2017 8:34:03 AM 50 mcg Yanna Wells 50 mcg FENTANYL given in lab by Yanna Wells RN in Left Wrist via Peripheral IV. Ordered by Mario Bravo. OXYGEN 10/12/2017 8:38:07 AM 2 l/min Yanna Wells 2 l/min OXYGEN given in lab by Yanna Wells RN via Nasal. Ordered by Mario Bravo. ZOFRAN 10/12/2017 8:40:13 AM 4 mg Yanna Wells 4 mg ZOFRAN given in lab by Yanna Wells RN via Central IV. Ordered by Mario Bravo. HEPARIN 10/12/2017 8:44:07 AM 6700 units Yanna Wells 6700 units HEPARIN given in lab by Yanna Wells RN via Peripheral IV. Ordered by Mario Bravo. BRILINTA 10/12/2017 9:04:00 AM 180 mg Yanna Wells 180 mg BRILINTA given in lab by Yanna Wells RN via Oral. Ordered by Mario Bravo. ASPIRIN 10/12/2017 9:10:45 AM 81 mg Yanna Wells 81 mg ASPIRIN given in lab by Yanna Wells RN via Oral. Ordered by Mario Bravo. Medication (Drip) Medication Time Given Dosage/Unit Concentration/Unit Diluent (ml) Solution ADENOSINE DRIP 10/12/2017 8:55:23 AM 139.894 mcg/kg/min 90 mg 90 NaCl .9 139.894 mcg/kg/min ADENOSINE DRIP given in lab by Yanna Wells RN via Peripheral IV. Pump/Drip Mahesh w = 951 ml/hr using NaCl .9 with a concentration of 90 mg in 90 ml. Ordered by Mario Bravo. ADENOSINE DRIP 10/12/2017 8:57:00 AM 139.894 mcg/kg/min 90 mg 90 NaCl .9 139.894 mcg/kg/min ADENOSINE DRIP given in lab by Yanna Wells RN via Peripheral IV. Pump/Drip Mahesh w = 951 ml/hr using NaCl .9 with a concentration of 90 mg in 90 ml. Ordered by Mario Bravo. Discontinued at 10/12/2017 9:09. AGGRASTAT DRIP 10/12/2017 8:16:02 AM 0.15 mcg/kg/min 12.5 mg 250 NaCl .9 Patient arrived on 0.15 mcg/kg/min AGGRASTAT DRIP in Right Forearm via Peripheral IV. Pump/Drip Flow = 20.39 ml/hr using NaCl .9 with a concentration of 12.5 mg in 250 ml. IV Solutions 10/12/2017 8:16:03 AM 50 mL (IV) NaCl .9 Patient arrived on IV Solutions in Left Wrist via Peripheral IV. Pump/Drip Flow using NaCl .9. NITROGLYCERIN DRIP 10/12/2017 8:16:04 AM 13.33 mcg/min 50 mg 250 D5W Patient arrived on 13.33 mcg/min NITROGLYCERIN DRIP in Right Forearm via Peripheral IV. Pump/Drip Mahesh w = 4 ml/hr using D5W with a concentration of 50 mg in 250 ml. Initial Case Assessment Cardiovascular HR NIBP 86 123/72 Edema Present Skin color Skin None Normal Warm Dry Circulatory - Right Pulses Dorsalis Pedis Femoral 2 2 Scale (0,1,2,3,4,d) Circulatory - Left Pulses Dorsalis Pedis Femoral 2 2 Scale (0,1,2,3,4,d) Circulatory - Lower Extremities Color Lower Right Color Lower Left Normal Normal Neurological State Oriented to time-place- Alert Moves all extremities person Respiration - General Respiration Rate SpO2 (%) (B/min) 16 95 Final Case Assessment Cardiovascular HR NIBP Chest Pain 90 139/73 5 Edema Present Skin color Skin None Normal Warm Dry Circulatory - Right Pulses Dorsalis Pedis Femoral 2 2 Scale (0,1,2,3,4,d) Circulatory - Left Pulses Dorsalis Pedis Femoral 2 2 Scale (0,1,2,3,4,d) Circulatory - Lower Extremities Color Lower Right Color Lower Left Normal Normal Neurological State Oriented to time-place- Alert Moves all extremities person Respiration - General Respiration Rate SpO2 (%) (B/min) 16 95 Chronological Log Time Study Chronological Log 8:15:53 Patient arrived via Bed. 8:15:54 Patient Name, D.O.B, / Armband Verified By R.N. 8:15:54 Consent signed by the physician and the patient and verified by the Relay Tester staff. 8:15:55 Pre-op and post- op instructions given; patient acknowledges understanding of instructions. 8:15:56 Verbal Stimulation=2 Physical Stimulation=2 Airway=2 Respiration=2 TOTAL=8. (0=absent, 1=li mited, 2=present) 8:15:56 Presedation assessment performed by Relay Tester RN. 8:15:57 Immediate Presedation assesment performed by physician. 8:15:58 Patient has been NPO for More than 6Hrs. 8:15:58 Skin Breakdown- NONE PER PATIENT 8:15:59 Patient Warmer Placed on the Table. 8:16:00 Zhen Prominences Protected 8:16:01 A # 22 IV was noted in the Forearm (left). Grade = 0 8:16:02 A # 20 IV was noted in the Wrist (left). Grade = 0 8:16:02 A # 22 IV was noted in the Forearm (right). Grade = 0 Patient arrived on 0.15 mcg/kg/min AGGRASTAT DRIP in Right Forearm via Peripheral IV. Pump/Drip Flow = 20.39 8:16:02 ml/hr using NaCl .9 with a concentration of 12.5 mg in 250 ml. 8:16:03 Patient arrived on IV Solutions in Left Wrist via Peripheral IV. Pump/Drip Flow using NaCl . 9. Patient arrived on 13.33 mcg/min NITROGLYCERIN DRIP in Right Forearm via Peripheral IV. Pump/Dri p Flow = 4 ml/hr 8:16:04 using D5W with a concentration of 50 mg in 250 ml. 8:16:04 History and physical on the chart or being dictated. Vitals capture started with the following parameters, Patient=Adult, Interval=5 min, Initial Pre mupjo=825 mmHg, 8:23:15 Deflation Rate=5 mmHg, Cuff placed on Left Leg 8:23:56 HR=83 bpm, RGFW=946/72 mmhg, SpO2=95.0 % Assessment: Initial Case, HR=86 BPM, NDQH=939/72 mmhg, Edema=None, Color=Normal, Skin = Warm, Dr y Right Pulses: Ilya Ped=2, Femoral=2 Left Pulses: Ilya Ped=2, Femoral=2 8:24:59 Lower Right Extremities: Color=Normal Lower Left Extremities: Color=Normal Neurological: State=Alert, Ox3, DUNBAR Respiration: Resp=16 B/min, SpO2=95 % 8:28:56 HR=81 bpm, KYCS=977/75 mmhg, SpO2=96.0 % 8:29:06 MD paged 8:29:06 MD arrived. 8:29:24 Bilateral groins prepped with 2% chlorhexidine, and draped after a 3 minute waiting time. Time Out. Correct patient, correct procedure, correct physician, labs, allergies, and equipment verified with laboratory aide 8:32:57 team present. Fire risk assesment completed (see hard stop sheet for coding). Time Out Concu rred by MD and individual staff in procedure. 8:33:02 Case Start 8:33:05 15 mL 1% XYLOCAINE given in lab by Mario Bravo in Right Groin via Subcutaneous. Ordered by Mario Bravo. 8:33:50 2 mg VERSED given in lab by Yanna Wells, ISIAH in Left Wrist via Peripheral IV. Ordered by Mario Smith. 8:33:57 HR=83 bpm, UDEU=372/69 mmhg, SpO2=96.0 %, Resp=8 B/min, Pain=0, Sebastian=10, Olmos=2 8:34:03 50 mcg FENTANYL given in lab by Yanna Wells RN in Left Wrist via Peripheral IV. Ordered by Mario Bravo. 8:34:42 Access site was Right Femoral Artery. 8:34:47 A SHEATH, FR6.5 PRELUDE 11CM FR 6.5 was advanced into the Fem Art (right) using the Percutan eous technique. 8:34:55 Pressure channel 1 zeroed. A JL 4.0 INFINITI CATHETER FR 6 was advanced over a wire. OMNIPAQUE, 350 MG, 150ML 150ML was use d for 8:35:19 injections. 8:36:16 The LCA was injected and visualized at various angles. OMNIPAQUE, 350 MG, 150ML 150ML used. After removing the current catheter a 3DRC INFINITI CATHETER FR 6 was advanced over a WIRE, 3MMJ .035 180CM 8:37:58 180CM. 8:38:07 2 l/min OXYGEN given in lab by Yanna Wells, ISIAH via Nasal. Ordered by Mario Bravo. 8:38:40 Reference ECG taken 8:38:58 HR=91 bpm, DDMQ=895/69 mmhg, SpO2=95.0 % 8:39:20 The RCA was injected and visualized at various angles. OMNIPAQUE, 350 MG, 150ML 150ML used. 8:39:40 Catheter was removed A PIGTAIL STR INFINITI CATHETER FR 6 was advanced over a wire. OMNIPAQUE, 350 MG, 150ML 150ML wa s used for 8:39:42 injections. 8:40:13 4 mg ZOFRAN given in lab by Yanna Wells RN via Central IV. Ordered by Mario Bravo. Recorded Pressure: LV, HR=96, Condition=Condition 1 8:41:05 (Left Ventricle) LV 138/5/15 8:41:13 The LV was manually injected with 10 cc's and visualized. OMNIPAQUE, 350 MG, 150ML 150ML use d. Recorded Pressure: LV, Ao, HR=93, Condition=Condition 1 8:41:32 (Left Ventricle) LV 127/-1/11, (Aorta) Ao 137/66/96 After removing the current catheter a XB 3.5 GUIDE CATHETER FR 6 was advanced over a WIRE, 3MMJ .035 180CM 8:43:34 180CM. 8:43:59 HR=92 bpm, JCGB=823/69 mmhg, SpO2=96.0 % 8:44:07 6700 units HEPARIN given in lab by Yanna Wells RN via Peripheral IV. Ordered by Jeff Bravo. Recorded Pressure: Ao, HR=92, Condition=Condition 1 8:45:05 (Aorta) Ao 126/67/94 8:47:32 Pressure channel 1 zeroed. 8:48:21 Activated Clotting Time Drawn 8:48:55 Flow Wire was was placed in the Fem Art (right). The FFR measures 0.8 percent. The IFR measu res ~IFR~ Percent. 8:48:58 HR=96 bpm, BZIF=258/67 mmhg, SpO2=96.0 %, Resp=12 B/min 8:53:21 ACT (Normal Range 90-180) = 264 8:53:59 HR=89 bpm, QGEW=209/72 mmhg, SpO2=96.0 %, Resp=10 B/min 139.894 mcg/kg/min ADENOSINE DRIP given in lab by Yanna Wells RN via Peripheral IV. Pump/Dri p Flow = 951 8:55:23 ml/hr using NaCl .9 with a concentration of 90 mg in 90 ml. Ordered by Mario Bravo. 139.894 mcg/kg/min ADENOSINE DRIP given in lab by Yanna Wells, RN via Peripheral IV. Pump/Dri p Flow = 951 8:57:00 ml/hr using NaCl .9 with a concentration of 90 mg in 90 ml. Ordered by Mario Bravo. Discontinue d at 10/12/2017 9:09. 8:58:58 HR=97 bpm, RBJL=095/69 mmhg, SpO2=98.0 %, Resp=16 B/min A STENT, 3.0 8MM MIRTHA 3.0 8MM was advanced through a XB 3.5 GUIDE CATHETER FR 6 over a PRIME WIR E, 8:59:24 VERRATA 185CM 185CM. A STENT, 3.0 8MM MIRTHA 3.0 8MM was deployed using a 30 DEBBIE INDEFLATOR at 17 atmospheres for 30 se conds in the 8:59:39 LAD Prox. 9:01:11 Delivery device removed 9:01:53 The PRIME WIRE, VERRATA 185CM 185CM was removed. 9:02:11 Catheter was removed 9:02:41 Case End (Physician broke scrub) 9:03:59 HR=94 bpm, GEIZ=495/73 mmhg, SpO2=96.0 % 9:04:00 180 mg BRILINTA given in lab by Yanna Wells, RN via Oral. Ordered by Mario Bravo. Assessment: Final Case, HR=90 BPM, MZPL=450/73 mmhg, Chest Pain=5, Edema=None, Color=Normal, Ski n = Warm, Dry Right Pulses: Ilya Ped=2, Femoral=2 Left Pulses: Ilya Ped=2, Femoral=2 9:06:02 Lower Right Extremities: Color=Normal Lower Left Extremities: Color=Normal Neurological: State=Alert, Ox3, DUNBAR Respiration: Resp=16 B/min, SpO2=95 % 9:08:25 Catheter(s) removed without difficulty 9:08:30 In the Fem Art (right) the SHEATH, FR6.5 PRELUDE 11CM FR 6.[address] by Aaron Nichols RCIS(BS). 9:08:48 Sterile dressing applied to site 9:08:49 No case complications noted. 9:08:49 Cine recording checked. 9:08:53 Bedside Report will be given. 9:08:54 Implantable Device card placed in patient's chart. 9:09:00 A Left Heart Cath was performed. 9:09:02 HR=93 bpm, IEUK=186/75 mmhg, SpO2=97.0 % 9:10:45 81 mg ASPIRIN given in lab by Yanna Wells RN via Oral. Ordered by Mario Bravo. 9:15:00 Patient moved to [facility] End Study - Contrast Media Used In Study Contrast Total Opened (mL) Total Used (mL) Total Wasted (mL) Omnipaque 145 145 0 End Study - Maximum Contrast Load Max Contrast Load (mL) 566.6 End Study - Radiation Exposure Fluoro Time (minutes) 3.0 End Study - Patient Disposition Complications Transferred To Interventional Outcome No Telemetry Bed successful
--- NOTE | 2017-10-12 09:17 | P.PNCA ---
Subjective Interval history: No CP, dyspnea. Physical Exam Vital signs: Vital Signs 10/11/17 09:27 10/11/17 12:14 10/11/17 13:57 Temperature 98.2 F 97.6 F Pulse Rate 104 H 79 85 Respiratory Rate 20 16 16 Blood Pressure 136/69 138/69 Pulse Oximetry 95 97 10/11/17 15:42 10/11/17 19:00 10/11/17 20:51 Temperature Pulse Rate 85 72 85 Respiratory Rate 16 15 16 Blood Pressure 135/74 Pulse Oximetry 98 10/11/17 23:00 10/12/17 03:00 10/12/17 08:03 Temperature Pulse Rate 78 82 86 Respiratory Rate 17 18 12 Blood Pressure 142/76 H 138/75 121/58 L Pulse Oximetry 97 98 95 10/12/17 08:05 Temperature Pulse Rate Respiratory Rate 12 Blood Pressure Pulse Oximetry Intake & Output 10/11/17 10/12/17 10/12/17 18:59 06:59 18:59 Intake Total 1000 / 1000 Balance 1000 / 1000 Weight 113.398 kg Intake: IV 1000 / 1000 NS Inj 1,000 ML @ 100 mls/hr IV 1000 / 1000 .CONT .[facility] Rx[facility][id number] - Constitutional no acute distress - Routine Neck Exam Absent: JVD - Routine Respiratory Exam Present: CTA bilaterally - Routine Cardiovascular Exam Present: RRR, S1, S2. Absent: murmur, gallop Assessment and Plan - Assessment (1) Unstable angina Code(s): I20.0 - Unstable angina Status: Acute Plan: Stable overnight. Cath today showed borderline proximal LAD disease with fractional flow reserve measurement (0.78) suggesting hemodynamic significance-- ->stent. Recommend overnight observation. Brilinta, baby aspirin. EF 60%. (2) Hypertension Code(s): I10 - Essential (primary) hypertension Status: Chronic Plan: Fluctuating BP's, mostly normotensive. Continue to monitor. (2) Hypertension Qualifiers: Hypertension type: essential hypertension Qualified Code(s): I10 - Essential (primary) hypertension
[2017-10-12] MEDS ORDERED: Iohexol 350 MG/ML 50 ML Vial (for Cath Lab) IVCONTRAST ONE (09:37)
[2017-10-12] MEDS ORDERED: Iohexol 350 MG/ML 100 ML Vial (for Cath Lab) IVCONTRAST ONE (09:37)
[2017-10-12] MEDS: Tirofiban Inj 12,500 MCG/250 ML PLAST..BAG IV.CONT SCH ×2 (10:15→22:37)
--- NOTE | 2017-10-12 11:26 | MA ---
cc: Mario Bravo MD DATE: 10/12/2017 PROCEDURE: Left heart catheterization, selective coronary angiography, left ventriculography, instant wave free ratio and fractional flow reserve measurement of the proximal left anterior descending artery, primary stenting of the proximal left anterior descending artery. PROCEDURE IN DETAIL: The patient was brought to the cardiac catheterization laboratory in a fasting state, after having signed informed consent. The right groin was prepped and draped as per policy and anesthetized with 1% lidocaine. Arterial access was obtained via the right femoral artery and a 6-Niuean sheath placed. Coronary arteriography was performed using 6-Niuean Jose left 4.0 and right progressive catheters. Left ventriculography was done using a standard 6-Niuean pigtail. Percutaneous coronary intervention was done as described below. There were no apparent immediate complications. HEMODYNAMIC DATA: Left ventricle 127 with an end-diastolic pressure of 11. Aorta 126/67 with a mean of 94. There was no significant transvalvular aortic gradient on pullback of the pigtail catheter. CORONARY ARTERIOGRAPHY: The left main is normal. The left anterior descending demonstrates a stent in its mid portion. There is minimal to mild diffuse restenosis of the stent. Just proximal to the stent, there is an eccentric, probably up to 60% stenosis, which is somewhat hazy. The mid to distal LAD has minimal luminal irregularities. The LAD gives rise to 2 small diagonals, which have minimal luminal irregularities. The left circumflex is a medium-sized vessel, giving rise to as medium-sized obtuse marginal. There is a stent in the mid left circumflex extending into the proximal obtuse marginal, and the stent is widely patent. There is a stent, which was placed in a T fashion in the mid left circumflex, possibly with its proximal edge slightly inside the other stent. This stent is also widely patent. In the proximal left circumflex, there may be up to 15% stenosis. The right coronary artery is a medium-size dominant vessel with minimal luminal irregularities in the proximal to mid portion. LEFT VENTRICULOGRAPHY: Contrast injection of the left ventricle reveals no segmental wall motion abnormalities. Ejection fraction is estimated at 60%. PERCUTANEOUS CORONARY INTERVENTION DESCRIPTION: As the proximal LAD lesion appeared to be hazy, and the patient has been having unstable angina-like symptoms, it was decided to further evaluate the borderline disease in the proximal LAD. Adequate heparin was given to achieve an ACT of 264 seconds. Using a 6-Niuean XB 3.5 guiding catheter, the ostium of the left main was reengaged. A pressure wire was normalized, and then advanced distal to the proximal LAD disease. The instant wave free ratio was measured at 0.90. It was decided to perform additional measurement with a fractional flow reserve. Adenosine 140 mcg/kg per minute was infused over 2-1/2 minutes. The fractional flow reserve dropped to as low as 0.78. Therefore, it decided to place a stent. A 3.0 x 8 mm Resolute [place] stent was deployed at the site of the lesion at 17 atmospheres for 30 seconds. Final angiography shows overall good results with reduction with the initial stenosis to roughly 0% residual with no definite evidence of dissection or distal embolization. The patient tolerated the procedure well. There were no apparent, immediate complications. CONCLUSIONS: 1. Widely patent mid left circumflex stents x 2, placed in 2014. 2. Widely patent mid left anterior descending stent placed in 2014. 3. Moderate to severe proximal left anterior descending artery disease with fractional flow reserve measurement indicating hemodynamic significance, now status post primary stenting of this region. 4. Normal left ventricular function with estimated ejection fraction of 60%. MD PETE Huerta/swati , 09:10 AM , 09:19 AM [email or web address]
[2017-10-12] MEDS: Furosemide 80 MG Tablet PO SCH (12:41)
[2017-10-12] MEDS: Lactobacillus Acidophilus/L. Spores Tablet PO SCH (12:42)
[2017-10-12] MEDS: ALPRAZolam 0.25 MG Tablet PO PRN (13:17)
[2017-10-12 15:13] LABS: Baso % (Auto) 0.6 % (0.0-2.0); Eos % (Auto) 0.7 % (0.0-4.0); Hematocrit 40.4 % (39.0-51.0); Hemoglobin 13.5 gm/dL (13.0-17.0); Lymph % (Auto) 13.5 % (9.0-44.0); Mean Corpuscular HGB Conc 33.4 % (32.0-36.0); Mean Corpuscular Volume 86.8 fL (80.0-100.0); Mean Platelet Volume 8.6 fL (7.0-11.0); Mono # (Auto) 0.4 th/mm3 (0.0-0.9); Mono % (Auto) 5.8 % (0.0-8.0); Neut # (Auto) 5.8 th/mm3 (1.8-7.7); Neut % (Auto) 79.4 % (16.0-70.0); Platelet Count 199 th/mm3 (150-450); Red Blood Count 4.65 mil/mm3 (4.50-5.90); Red Cell Distribution Width 14.5 % (11.6-17.2); White Blood Count 7.3 th/mm3 (4.0-11.0)
[2017-10-12 15:23] LABS: Albumin 3.6 g/dL (3.4-5.0); Anion Gap 8 meq/L (5-15); Aspartate Aminotransferase 34 U/L (15-37); Blood Urea Nitrogen 13 mg/dL (7-18); Calcium 8.8 mg/dL (8.5-10.1); Carbon Dioxide 25.2 meq/L (21.0-32.0); Chloride 106 meq/L (98-107); Glomerular Filtration Rate 70 mL/min (>89); Glucose,Random 92 mg/dL (74-106); Sodium 139 meq/L (136-145)
[2017-10-12 15:27] LABS: Alanine Aminotransferase 41 U/L (12-78); Alkaline Phosphatase 66 U/L (45-117); Total Protein 7.7 g/dL (6.4-8.2)
--- NOTE | 2017-10-12 15:58 | P.PNIM ---
Subjective Interval history: Patient reports he is feeling OK. States chest pain resolved. Physical Exam Vital signs: Vital Signs 10/11/17 19:00 10/11/17 20:51 10/11/17 23:00 Pulse Rate 72 85 78 Respiratory Rate 15 16 17 Blood Pressure 135/74 142/76 H Pulse Oximetry 98 97 10/12/17 03:00 10/12/17 08:03 10/12/17 08:05 Pulse Rate 82 86 Respiratory Rate 18 12 12 Blood Pressure 138/75 121/58 L Pulse Oximetry 98 95 10/12/17 09:24 10/12/17 11:13 10/12/17 11:30 Pulse Rate 87 Respiratory Rate Blood Pressure Pulse Oximetry 96 99 10/12/17 13:57 Pulse Rate 85 Respiratory Rate 17 Blood Pressure Pulse Oximetry Intake & Output 10/11/17 10/12/17 10/12/17 18:59 06:59 18:59 Intake Total 1000 / 1000 Balance 1000 / 1000 Weight 113.398 kg Intake: IV 1000 / 1000 NS Inj 1,000 ML @ 100 mls/hr IV 1000 / [address] [facility] Rx#:[id number] Other: Date of Last Bowel Movement 10/11/17 Narrative: GENERAL: This is a well-nourished, well-developed patient, in no apparent distress. CARDIOVASCULAR: Regular rate and rhythm without murmurs, gallops, or rubs. RESPIRATORY: Clear to auscultation. Breath sounds equal bilaterally. No wheezes , rales, or rhonchi. GASTROINTESTINAL: Abdomen soft, non-tender, nondistended. Normal active bowel sounds MUSCULOSKELETAL: Extremities without clubbing, cyanosis, or edema. NEURO: Alert & Oriented x4 to person, place, time, situation. Moves all ext x4 Results - Labs CBC & Chem 7: 10/12/17 14:05 10/12/17 14:05 Laboratory Results - last 24 hr 10/11/17 10/11/17 10/12/17 15:30 19:35 06:00 WBC RBC Hgb Hct MCV MCH MCHC RDW Plt Count MPV Neut % (Auto) Lymph % (Auto) [place] % (Auto) Eos % (Auto) Baso % (Auto) Neut # (Auto) Lymph # (Auto) [place] # (Auto) Eos # (Auto) Baso # (Auto) WBC Differential Differential Comment APTT 28.2 D Sodium Potassium Chloride Carbon Dioxide Anion Gap BUN Creatinine Estimated GFR Random Glucose Calcium Total Bilirubin AST ALT Alkaline Phosphatase Total Creatine Kinase 57 60 Troponin I Less than 0.02 L Less than 0.02 L Total Protein Albumin 10/12/17 10/12/17 14:05 14:05 WBC 7.3 RBC 4.65 Hgb 13.5 Hct 40.4 MCV 86.8 MCH 29.0 MCHC 33.4 RDW 14.5 Plt Count 199 MPV 8.6 Neut % (Auto) 79.4 H Lymph % (Auto) 13.5 [place] % (Auto) 5.8 Eos % (Auto) 0.7 Baso % (Auto) 0.6 Neut # (Auto) 5.8 Lymph # (Auto) 1.0 [place] # (Auto) 0.4 Eos # (Auto) 0.0 Baso # (Auto) 0.0 WBC Differential . Differential Comment Auto diff final APTT Sodium 139 Potassium 4.0 Chloride 106 Carbon Dioxide 25.2 Anion Gap 8 BUN 13 Creatinine 1.08 Estimated GFR 70 L Random Glucose 92 Calcium 8.8 Total Bilirubin 1.0 AST 34 ALT 41 Alkaline Phosphatase 66 Total Creatine Kinase Troponin I Less than 0.02 L Total Protein 7.7 Albumin 3.6 Assessment and Plan - Assessment (1) Unstable angina Code(s): I20.0 - Unstable angina Status: Acute (2) Chest pain Code(s): R07.9 - Chest pain, unspecified Status: Acute - Plan 62-year-old male admitted secondary to unstable angina Chest pain Unstable angina Coronary artery disease History of coronary artery stents 5 HTN -Appreciate cardiology following. Patient status post heart catheterization with stent of the LAD. - Continue aspirin, Brilinta, statin. -Continue home dose Toprol and Lasix BPH Continue baseline treatments Anxiety: -Continue home dose Xanax as needed COPD No exacerbation Continue baseline treatments DVT prophylaxis Heparin (2) Chest pain Qualifiers: Chest pain type: unspecified Qualified Code(s): R07.9 - Chest pain, unspecified
[2017-10-12] MEDS: Topiramate 25 MG Tablet PO SCH (16:52)
[2017-10-13] MEDS: Sod Chloride 0.9% Inj 1,000 ML IV.CONT SCH ×2 (01:58→08:53)
[2017-10-13] MEDS: Budesonide-Formoterol 160/4.5 MCG 6 GM Inhaler INH SCH (05:00)
[2017-10-13 06:20] LABS: Baso # (Auto) 0.1 th/mm3 (0.0-0.2); Baso % (Auto) 0.7 % (0.0-2.0); Eos % (Auto) 0.4 % (0.0-4.0); Hematocrit 35.8 % (39.0-51.0); Hemoglobin 12.5 gm/dL (13.0-17.0); Lymph # (Auto) 1.3 th/mm3 (1.0-4.8); Lymph % (Auto) 15.8 % (9.0-44.0); Mean Corpuscular Hemoglobin 29.2 pg (27.0-34.0); Mean Corpuscular Volume 83.4 fL (80.0-100.0); Mean Platelet Volume 8.8 fL (7.0-11.0); Mono # (Auto) 0.9 th/mm3 (0.0-0.9); Mono % (Auto) 10.9 % (0.0-8.0); Neut # (Auto) 6.2 th/mm3 (1.8-7.7); Neut % (Auto) 72.2 % (16.0-70.0); Platelet Count 191 th/mm3 (150-450); Red Blood Count 4.29 mil/mm3 (4.50-5.90); Red Cell Distribution Width 14.2 % (11.6-17.2); White Blood Count 8.5 th/mm3 (4.0-11.0)
[2017-10-13 06:37] LABS: Calcium 8.3 mg/dL (8.5-10.1); Carbon Dioxide 27.8 meq/L (21.0-32.0); Chol/HDL Ratio 2.69 Ratio; HDL Cholesterol 58.2 mg/dL (40.0-60.0)
--- NOTE | 2017-10-13 08:44 | P.PNCA ---
Subjective Interval history: Brief mild left inframammary chest discomfort this morning. No dyspnea, groin pain, dizziness. Physical Exam Vital signs: Vital Signs 10/12/17 09:24 10/12/17 11:13 10/12/17 11:30 Temperature Pulse Rate 87 Respiratory Rate Blood Pressure Pulse Oximetry 96 99 10/12/17 12:00 10/12/17 13:00 10/12/17 13:57 Temperature 98.0 F Pulse Rate 93 H 96 H 85 Respiratory Rate 20 17 Blood Pressure 147/61 H Pulse Oximetry 98 10/12/17 14:00 10/12/17 15:00 10/12/17 16:00 Temperature 98.2 F Pulse Rate 94 H 101 H 104 H Respiratory Rate 22 Blood Pressure 138/73 Pulse Oximetry 96 10/12/17 17:00 10/12/17 18:00 10/12/17 19:00 Temperature Pulse Rate 114 H 118 H 111 H Respiratory Rate Blood Pressure Pulse Oximetry 10/12/17 20:00 10/12/17 21:00 10/12/17 22:00 Temperature 98 F Pulse Rate 111 H 100 H 100 H Respiratory Rate 19 Blood Pressure 130/65 Pulse Oximetry 95 10/12/17 23:00 10/12/17 23:57 10/13/17 00:00 Temperature Pulse Rate 98 H 92 H Respiratory Rate Blood Pressure Pulse Oximetry 95 10/13/17 00:03 10/13/17 00:30 10/13/17 01:00 Temperature 98 F Pulse Rate 96 H 96 H 87 Respiratory Rate 19 Blood Pressure 104/66 129/73 Pulse Oximetry 96 10/13/17 02:00 10/13/17 03:00 10/13/17 04:00 Temperature Pulse Rate 90 87 86 Respiratory Rate Blood Pressure Pulse Oximetry 10/13/17 05:00 10/13/17 06:00 10/13/17 07:00 Temperature Pulse Rate 78 87 86 Respiratory Rate Blood Pressure Pulse Oximetry Intake & Output 10/12/17 10/13/17 10/13/17 18:59 06:59 18:59 Intake Total 3850 / 3850 1740 / 1740 Output Total 750 / 750 2600 / 2600 Balance 3100 / 3100 -860 / -860 Weight 115.4 kg Intake: IV 3250 / 3250 1500 / 1500 Heparin/D5W 25,000 U/250 mL 25, 250 / 250 000 unit In 250 ml @ Per Protocol IV.CONT TITRATE PRN Rx #:[id number] NS Inj 1,000 ML @ 100 mls/hr IV 2000 / 2000 1000 / 1000 .CONT .Q10H BIB Rx#:[id number] Aggrastat Inj 12,500 mcg In 250 250 / 250 250 / 250 ml @ Per Protocol IV.CONT .Q0M BIB Rx#:[id number] Oral 600 / 600 240 / 240 Output: Urine 750 / 750 2600 / 2600 Other: Date of Last Bowel Movement 10/11/17 10/11/17 - Constitutional no acute distress - Routine Neck Exam Absent: JVD - Routine Respiratory Exam Present: CTA bilaterally - Routine Cardiovascular Exam Present: RRR, S1, S2. Absent: murmur, gallop - Routine Abdominal Exam Present: soft, normoactive bowel sounds. Absent: tenderness, organomegaly - Routine Extremities Exam Absent: cyanosis, clubbing, edema Comments: Right groin arteriotomy site without hematoma or tenderness. Assessment and Plan - Assessment (1) Unstable angina Code(s): I20.0 - Unstable angina Status: Acute Plan: Stable overnight. Brief CP this am, likely noncardiac in origin. Cath yesterday showed borderline proximal LAD disease with fractional flow reserve measurement (0.78) suggesting hemodynamic significance--->stent. Overall very good lipid profile. Recommend ambulate in halls, discharge if ambulating without difficulty. Brilinta, baby aspirin. (2) Hypertension Code(s): I10 - Essential (primary) hypertension Status: Chronic Plan: Mostly normotensive. Continue same. (2) Hypertension Qualifiers: Hypertension type: essential hypertension Qualified Code(s): I10 - Essential (primary) hypertension
[2017-10-13] MEDS ORDERED: PT OWN MED: SPIRIVA RESPIMAT 2 INH DAILY INH SCH (09:00)
[2017-10-13] MEDS: Lactobacillus Acidophilus/L. Spores Tablet PO SCH (09:41)
[2017-10-13] MEDS: Furosemide 80 MG Tablet PO SCH (09:42)
[2017-10-13] MEDS: Topiramate 25 MG Tablet PO SCH (09:42)
[2017-10-13] MEDS: Acetaminophen 500 MG Tablet PO PRN (09:43)
[2017-10-13] MEDS: Nitroglycerin Drip Premix 50 MG/250 ML BOTTLE IV.CONT PRN (11:22)
--- NOTE | 2017-10-13 11:27 | P.PN ---
Subjective Interval history: Follow-up unstable angina/chest pain 10/13/17-patient seen and examined; denies any CP/SOB/diaphoresis. States he is ready for discharge today Physical Exam Vital signs: Vital Signs 10/12/17 11:30 10/12/17 12:00 10/12/17 13:00 Temperature 98.0 F Pulse Rate 87 93 H 96 H Respiratory Rate 20 Blood Pressure 147/61 H Pulse Oximetry 98 10/12/17 13:57 10/12/17 14:00 10/12/17 15:00 Temperature Pulse Rate 85 94 H 101 H Respiratory Rate 17 Blood Pressure Pulse Oximetry 10/12/17 16:00 10/12/17 17:00 10/12/17 18:00 Temperature 98.2 F Pulse Rate 104 H 114 H 118 H Respiratory Rate 22 Blood Pressure 138/73 Pulse Oximetry 96 10/12/17 19:00 10/12/17 20:00 10/12/17 21:00 Temperature 98 F Pulse Rate 111 H 111 H 100 H Respiratory Rate 19 Blood Pressure 130/65 Pulse Oximetry 95 10/12/17 22:00 10/12/17 23:00 10/12/17 23:57 Temperature Pulse Rate 100 H 98 H Respiratory Rate Blood Pressure Pulse Oximetry 95 10/13/17 00:00 10/13/17 00:03 10/13/17 00:30 Temperature 98 F Pulse Rate 92 H 96 H 96 H Respiratory Rate 19 Blood Pressure 104/66 129/73 Pulse Oximetry 96 10/13/17 01:00 10/13/17 02:00 10/13/17 03:00 Temperature Pulse Rate 87 90 87 Respiratory Rate Blood Pressure Pulse Oximetry 10/13/17 04:00 10/13/17 05:00 10/13/17 06:00 Temperature Pulse Rate 86 78 87 Respiratory Rate Blood Pressure Pulse Oximetry 10/13/17 07:00 10/13/17 08:00 Temperature Pulse Rate 86 92 H Respiratory Rate Blood Pressure Pulse Oximetry 96 Intake & Output 10/12/17 10/13/17 10/13/17 18:59 06:59 18:59 Intake Total 3850 / 3850 1740 / 1740 30 / 30 Output Total 750 / 750 2600 / 2600 Balance 3100 / 3100 -860 / -860 30 / 30 Weight 115.4 kg Intake: IV 3250 / 3250 1500 / 1500 30 / 30 Heparin/D5W 25,000 U/250 mL 25, 250 / 250 000 unit In 250 ml @ Per Protocol IV.CONT TITRATE PRN Rx #:[id number] NS Inj 1,000 ML @ 100 mls/hr IV 2000 / 2000 1000 / 1000 .CONT .Q10H BIB Rx#:[id number] Aggrastat Inj 12,500 mcg In 250 250 / 250 250 / 250 30 / 30 ml @ Per Protocol IV.CONT .Q0M BIB Rx#:[id number] Oral 600 / 600 240 / 240 Output: Urine 750 / 750 2600 / 2600 Other: Date of Last Bowel Movement 10/11/17 10/11/17 Narrative: GENERAL: This is a well-nourished, well-developed patient, in no apparent distress. CARDIOVASCULAR: Regular rate and rhythm without murmurs, gallops, or rubs. RESPIRATORY: Clear to auscultation. Breath sounds equal bilaterally. No wheezes , rales, or rhonchi. GASTROINTESTINAL: Abdomen soft, non-tender, nondistended. Normal active bowel sounds MUSCULOSKELETAL: Extremities without clubbing, cyanosis, or edema. NEURO: Alert & Oriented x4 to person, place, time, situation. Moves all ext x4 Results - Labs CBC & Chem 7: 10/13/17 04:53 10/13/17 04:53 Laboratory Results - last 24 hr 10/12/17 10/12/17 10/13/17 14:05 14:05 04:53 WBC 7.3 8.5 RBC 4.65 4.29 L Hgb 13.5 12.5 L Hct 40.4 35.8 L MCV 86.8 83.4 MCH 29.0 29.2 MCHC 33.4 35.0 RDW 14.5 14.2 Plt Count 199 191 MPV 8.6 8.8 Neut % (Auto) 79.4 H 72.2 H Lymph % (Auto) 13.5 15.8 [place] % (Auto) 5.8 10.9 H Eos % (Auto) 0.7 0.4 Baso % (Auto) 0.6 0.7 Neut # (Auto) 5.8 6.2 Lymph # (Auto) 1.0 1.3 [place] # (Auto) 0.4 0.9 Eos # (Auto) 0.0 0.0 Baso # (Auto) 0.0 0.1 WBC Differential . . Differential Comment Auto diff final Auto diff final Sodium 139 Potassium 4.0 Chloride 106 Carbon Dioxide 25.2 Anion Gap 8 BUN 13 Creatinine 1.08 Estimated GFR 70 L Random Glucose 92 Calcium 8.8 Total Bilirubin 1.0 AST 34 ALT 41 Alkaline Phosphatase 66 Total Creatine Kinase Troponin I Less than 0.02 L Total Protein 7.7 Albumin 3.6 Triglycerides Cholesterol LDL Cholesterol, Calc HDL Cholesterol Cholesterol/HDL Ratio 10/13/17 04:53 WBC RBC Hgb Hct MCV MCH MCHC RDW Plt Count MPV Neut % (Auto) Lymph % (Auto) [place] % (Auto) Eos % (Auto) Baso % (Auto) Neut # (Auto) Lymph # (Auto) [place] # (Auto) Eos # (Auto) Baso # (Auto) WBC Differential Differential Comment Sodium 137 Potassium 3.0 L D Chloride 100 Carbon Dioxide 27.8 Anion Gap 9 BUN 11 Creatinine 1.09 Estimated GFR 69 L Random Glucose 120 H Calcium 8.3 L Total Bilirubin AST ALT Alkaline Phosphatase Total Creatine Kinase 35 L Troponin I Total Protein Albumin Triglycerides 211 H Cholesterol 157 LDL Cholesterol, Calc 57 HDL Cholesterol 58.2 Cholesterol/HDL Ratio 2.69 - Procedures PCI with stent x1 Assessment and Plan - Assessment (1) Unstable angina Code(s): I20.0 - Unstable angina Status: Acute (2) Chest pain Code(s): R07.9 - Chest pain, unspecified Status: Acute - Plan 62-year-old male admitted secondary to unstable angina Chest pain Unstable angina Coronary artery disease History of coronary artery stents 5 HTN -Appreciate cardiology input. Status post heart catheterization with stent of the LAD. - Continue aspirin, Brilinta, statin. -Continue home dose Toprol and Lasix -Cardiology recommends to hold Nitrate BPH Continue baseline treatments Anxiety: -Continue home dose Xanax as needed COPD No exacerbation Continue baseline treatments DVT prophylaxis Heparin (2) Chest pain Qualifiers: Chest pain type: unspecified Qualified Code(s): R07.9 - Chest pain, unspecified
--- NOTE | 2017-10-13 11:33 | P.DS ---
Date of admission: 10/11/17 16:36 Primary care physician: PROVIDER NON STAFF Anticipated date of discharge: 10/13/17 Brief History from admission: Mr. Jackson is a 62-year-old male. He has a past history of coronary artery disease and 5 stents. COPD is present at baseline. No recent exacerbation of COPD. He comes into the emergency department with complaints of approximately 36 hours of unstable angina with recurrent central chest pain which is relieved quickly by nitro arrest but keeps coming back. Is a strong family history of both parents and a brother having coronary artery disease. When seen in the ER he still has intermittent chest pain. Potential for heart cath tonight or tomorrow morning based on symptoms. Fluid nitroglycerin, heparin, and morphine are being initiated to attempt pain control. DS: Diagnosis - Discharge Diagnosis (1) Unstable angina Status: Acute (2) Chest pain Status: Acute DS: Summary Hospital Course: While in the hospital, patient was treated for: Chest pain Unstable angina Coronary artery disease History of coronary artery stents 5 HTN -Appreciate cardiology input. Status post heart catheterization with stent of the LAD. -Treated with aspirin, Brilinta, statin. -Treated with home dose Toprol and Lasix -Cardiology recommends to hold Nitrate BPH Continue baseline treatments Anxiety: -Treated with home dose Xanax as needed COPD No exacerbation Continue baseline treatments DVT prophylaxis Heparin - Time Spent with Patient Total time spent providing and/or coordinating discharge services: Greater than 30 minutes Exam Vital signs: Vital Signs 10/12/17 11:30 10/12/17 12:00 10/12/17 13:00 Temperature 98.0 F Pulse Rate 87 93 H 96 H Respiratory Rate 20 Blood Pressure 147/61 H Pulse Oximetry 98 10/12/17 13:57 10/12/17 14:00 10/12/17 15:00 Temperature Pulse Rate 85 94 H 101 H Respiratory Rate 17 Blood Pressure Pulse Oximetry 10/12/17 16:00 10/12/17 17:00 10/12/17 18:00 Temperature 98.2 F Pulse Rate 104 H 114 H 118 H Respiratory Rate 22 Blood Pressure 138/73 Pulse Oximetry 96 10/12/17 19:00 10/12/17 20:00 10/12/17 21:00 Temperature 98 F Pulse Rate 111 H 111 H 100 H Respiratory Rate 19 Blood Pressure 130/65 Pulse Oximetry 95 10/12/17 22:00 10/12/17 23:00 10/12/17 23:57 Temperature Pulse Rate 100 H 98 H Respiratory Rate Blood Pressure Pulse Oximetry 95 10/13/17 00:00 10/13/17 00:03 10/13/17 00:30 Temperature 98 F Pulse Rate 92 H 96 H 96 H Respiratory Rate 19 Blood Pressure 104/66 129/73 Pulse Oximetry 96 10/13/17 01:00 10/13/17 02:00 10/13/17 03:00 Temperature Pulse Rate 87 90 87 Respiratory Rate Blood Pressure Pulse Oximetry 10/13/17 04:00 10/13/17 05:00 10/13/17 06:00 Temperature Pulse Rate 86 78 87 Respiratory Rate Blood Pressure Pulse Oximetry 10/13/17 07:00 10/13/17 08:00 10/13/17 09:00 Temperature Pulse Rate 86 92 H 89 Respiratory Rate Blood Pressure Pulse Oximetry 96 10/13/17 10:00 Temperature Pulse Rate 87 Respiratory Rate Blood Pressure Pulse Oximetry Intake & Output 10/12/17 10/13/17 10/13/17 18:59 06:59 18:59 Intake Total 3850 / 3850 1740 / 1740 280 / 280 Output Total 750 / 750 2600 / 2600 Balance 3100 / 3100 -860 / -860 280 / 280 Weight 115.4 kg Intake: IV 3250 / 3250 1500 / 1500 280 / 280 Heparin/D5W 25,000 U/250 mL 25, 250 / 250 000 unit In 250 ml @ Per Protocol IV.CONT TITRATE PRN Rx #:[id number] Nitroglycerin Drip Premix 50 mg 250 / 250 In 250 ml @ Per Protocol IV. CONT TITRATE PRN Rx#:[id number] NS Inj 1,000 ML @ 100 mls/hr IV 2000 / 2000 1000 / 1000 .CONT .Q10H BIB Rx#:[id number] Aggrastat Inj 12,500 mcg In 250 250 / 250 250 / 250 30 / 30 ml @ Per Protocol IV.CONT .Q0M BIB Rx#:[id number] Oral 600 / 600 240 / 240 Output: Urine 750 / 750 2600 / 2600 Other: Date of Last Bowel Movement 10/11/17 10/11/17 Narrative: GENERAL: NAD SKIN: Warm and dry. HEAD: Normocephalic. EYES: No scleral icterus. No injection or drainage. NECK: Supple, trachea midline. No JVD or lymphadenopathy. CARDIOVASCULAR: Regular rate and rhythm without murmurs, gallops, or rubs. RESPIRATORY: Breath sounds equal bilaterally. No accessory muscle use. GASTROINTESTINAL: Abdomen soft, non-tender, nondistended. MUSCULOSKELETAL: No cyanosis, or edema. BACK: Nontender without obvious deformity. No CVA tenderness. Results Procedures completed during hospitalization: PCI with stent x1 Labs on day of discharge: Labs from last 24 hours 10/13/17 10/13/17 10/12/17 04:53 04:53 14:05 WBC 8.5 RBC 4.29 L Hgb 12.5 L Hct 35.8 L MCV 83.4 MCH 29.2 MCHC 35.0 RDW 14.2 Plt Count 191 MPV 8.8 Neut % (Auto) 72.2 H Lymph % (Auto) 15.8 [place] % (Auto) 10.9 H Eos % (Auto) 0.4 Baso % (Auto) 0.7 Neut # (Auto) 6.2 Lymph # (Auto) 1.3 [place] # (Auto) 0.9 Eos # (Auto) 0.0 Baso # (Auto) 0.1 WBC Differential . Differential Comment Auto diff final Sodium 137 139 Potassium 3.0 L D 4.0 Chloride 100 106 Carbon Dioxide 27.8 25.2 Anion Gap 9 8 BUN 11 13 Creatinine 1.09 1.08 Estimated GFR 69 L 70 L Random Glucose 120 H 92 Calcium 8.3 L 8.8 Total Bilirubin 1.0 AST 34 ALT 41 Alkaline Phosphatase 66 Total Creatine Kinase 35 L Troponin I Less than 0.02 L Total Protein 7.7 Albumin 3.6 Triglycerides 211 H Cholesterol 157 LDL Cholesterol, Calc 57 HDL Cholesterol 58.2 Cholesterol/HDL Ratio 2.69 10/12/17 14:05 WBC 7.3 RBC 4.65 Hgb 13.5 Hct 40.4 MCV 86.8 MCH 29.0 MCHC 33.4 RDW 14.5 Plt Count 199 MPV 8.6 Neut % (Auto) 79.4 H Lymph % (Auto) 13.5 [place] % (Auto) 5.8 Eos % (Auto) 0.7 Baso % (Auto) 0.6 Neut # (Auto) 5.8 Lymph # (Auto) 1.0 [place] # (Auto) 0.4 Eos # (Auto) 0.0 Baso # (Auto) 0.0 WBC Differential . Differential Comment Auto diff final Sodium Potassium Chloride Carbon Dioxide Anion Gap BUN Creatinine Estimated GFR Random Glucose Calcium Total Bilirubin AST ALT Alkaline Phosphatase Total Creatine Kinase Troponin I Total Protein Albumin Triglycerides Cholesterol LDL Cholesterol, Calc HDL Cholesterol Cholesterol/HDL Ratio - Impressions ITS Impressions Chest X-Ray 10/11/17 09:30 CONCLUSION: Atelectatic changes right base, stable in the interval. Discharge Plan - Discharge Disposition Patient Disposition: 01 Discharge Home - Discharge Condition Condition: Good - Discharge Order Discharge Orders: Discharge Order (Routine); Ordered 10/13/17 Ordered By: Biju Sawant - Physicians Team Primary Care Provider: NON STAFF,PROVIDER Attending Provider: Biju Sawant Other Providers: Mario Bravo MD
--- NOTE | 2017-10-13 11:59 | P.DCO ---
- Diagnosis (1) Chest pain - Home Health Nursing Order: Signs/symptoms of disease process - Certification I have seen patient Ian Jackson on 10/13/17. My clinical findings support the need for the requested home health care services because: Medication compliance is questionable I certify that my clinical findings support that this patient is homebound because: Poor cardiac reserve (1) Chest pain Qualifiers: Chest pain type: unspecified Qualified Code(s): R07.9 - Chest pain, unspecified
[2017-10-13 12:30] VITALS: BP 108/77; PULSE 83; RESP 18; TEMP 97.9; O2SAT 95
== END 2017-10-13 14:09 | disposition home or self-care (01) ==
LOC: NEDA 09:24 → NEPE 09:24 → NEDH 21:42 → HCIS 10-12 10:10
PROVIDERS: ADMIT Hospitalist; ATTEND Hospitalist

== ENCOUNTER 2017-10-14 09:10 | Observation (INO) ==
--- NOTE | 2017-10-14 09:44 | ED ---
HPI General Chief Complaint: Chest Pain Stated Complaint: chest pain Time Seen by Provider: 10/14/17 09:19 Source: patient Mode of arrival: ambulatory Limitations: no limitations History of Present Illness HPI narrative: 62 y/o male presents with chest pain and sweating at 5 AM this morning. He denies other associated symptoms with this. 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 Soni's who just placed a stent 2 days ago and they advised for him to come in. MD complaint: chest pain Complete Quality Measures for STEMI Alert Patients STEMI Alert: No Onset (ago): hour(s) Time: 05:00 Duration: constant Onset: during rest Pain location: substernal Severity: moderate Quality: tightness Pain radiation: none Relieving factors: nothing Exacerbating factors: nothing Associated symptoms: nausea Treatments prior to arrival chest pain: nitroglycerin Related Data Home Medications Medication Instructions Recorded Confirmed acetaminophen [Tylenol Extra 1,000 mg PO Q6H PRN 10/11/17 10/11/17 Strength] albuterol sulfate [Ventolin HFA] 2 puff INHALATION Q6H PRN 10/11/17 10/11/17 alprazolam [Xanax] 0.25 mg PO TID PRN 10/11/17 10/11/17 aspirin [Harriet Chewable Aspirin] 81 mg PO DAILY 10/11/17 10/11/17 budesonide-formoterol [Symbicort] 2 puff INHALATION Q12H 10/11/17 10/11/17 cholecalciferol (vitamin D3) 2,000 unit PO DAILY 10/11/17 10/11/17 [Vitamin D3] furosemide [Lasix] 80 mg PO DAILY 10/11/17 10/11/17 ipratropium-albuterol 3 ml INHALATION Q4-6H PRN 10/11/17 10/11/17 lactobacillus combination no.4 1 cap PO DAILY 10/11/17 10/11/17 [Probiotic] metoprolol succinate [Toprol XL] 50 mg PO DAILY 10/11/17 10/11/17 nitroglycerin [Nitrostat] 0.4 mg SUBLINGUAL Q5-15M PRN 10/11/17 10/11/17 oxybutynin chloride 5 mg PO TID 10/11/17 10/11/17 pantoprazole 40 mg PO DAILY 10/11/17 10/11/17 polyethylene glycol 3350 [Miralax] 17 g PO DAILY PRN 10/11/17 10/11/17 potassium chloride 10 meq PO DAILY 10/11/17 10/11/17 tamsulosin 0.4 mg PO BID 10/11/17 10/11/17 tiotropium bromide [Spiriva 2 puff INHALATION DAILY 10/11/17 10/11/17 Respimat] topiramate [Topamax] 25 mg PO DAILY 10/11/17 10/11/17 Previous Rx's Medication Instructions Recorded pravastatin 80 mg PO QPM #30 tab 10/13/17 ticagrelor [Brilinta] 90 mg PO BID #60 tab 10/13/17 Allergies Allergy/AdvReac Type Severity Reaction Status Date / Time ciprofloxacin Allergy Severe Itching Verified 10/14/17 09:11 lamotrigine Allergy Severe Rash Verified 10/14/17 09:11 tramadol Allergy Severe Anaphylaxis Verified 10/14/17 09:11 gabapentin AdvReac Mild Itching Verified 10/14/17 09:11 Review of Systems ROS: all other systems reviewed are negative [facility] Medical History Medical History COPD (chronic obstructive pulmonary disease) (Acute) Old [place] (myocardial infarction) (Acute) Coronary artery disease (Acute) Surgical History Surgical History History of coronary artery stent placement (Acute) Family History Family History Mother Coronary artery disease Brother Coronary artery disease Father Coronary artery disease Social History Social History Substance History: No History of Abuse Second Hand Smoke Exposure: No Smoking Status: Former smoker Tobacco Type: Cigarettes How Often Do You Have a Drink Containing Alcohol: Never Recent Travel in [facility] within the Last 8 Weeks: No Recent Out of Country Travel within the Last 8 Weeks: No Immunization History Tetanus Immunization: Unsure Hx Influenza Vaccine This Season: No Exam Narrative Exam Narrative: GENERAL: 62-year-old male in no apparent distress SKIN: Focused skin assessment warm/dry. HEAD: Atraumatic. Normocephalic. EYES: Pupils equal and round. No scleral icterus. No injection or drainage. ENT: No nasal bleeding or discharge. Mucous membranes pink and moist. NECK: Trachea midline. No JVD. CARDIOVASCULAR: Regular rate and rhythm. RESPIRATORY: No accessory muscle use. Clear to auscultation. Breath sounds equal bilaterally. GASTROINTESTINAL: Abdomen soft, non-tender, nondistended. MUSCULOSKELETAL: No obvious deformities. No clubbing. No cyanosis. NEUROLOGICAL: Awake and alert. Motor grossly within normal limits. Normal speech. PSYCHIATRIC: Appropriate mood and affect; insight and judgment normal. Course Reevaluation(s) Reevaluation #1: patient updated and agrees to admit Consultations Consultation #1: dr josue states to admit to the chest pain center Initial Documented Vital Signs Temperature 97.6 F 10/14/17 09:11 Pulse Rate 117 H 10/14/17 09:11 Respiratory Rate 22 10/14/17 09:11 Blood Pressure 159/76 H 10/14/17 09:11 Pulse Oximetry 97 10/14/17 09:11 Last Documented Vital Signs Temperature 98.5 F 10/14/17 09:23 Pulse Rate 102 H 10/14/17 10:34 Respiratory Rate 16 10/14/17 10:34 Blood Pressure 142/71 H 10/14/17 10:34 Pulse Oximetry 98 10/14/17 10:34 Medical Decision Making MDM Narrative Medical decision making narrative: EKG is without concerning findings. We will check blood work and x-ray and dose with aspirin nitroglycerin and discuss with his auto job estimator Medical Screen Exam Complete: Yes Emergency Medical Condition: Yes Differential Diagnosis Differential Diagnosis: VA, gastritis, musculoskeletal Lab Data Lab results reviewed: Yes I reviewed the patient's lab results. Result diagrams: 10/14/17 09:45 10/14/17 09:45 Lab Results 10/14/17 10/14/17 10/14/17 Range/Units 09:45 09:45 09:45 WBC 8.0 (4.0-11.0) th/mm3 RBC 4.40 L (4.50-5.90) mil/mm3 Hgb 12.8 L (13.0-17.0) gm/dL Hct 36.6 L (39.0-51.0) % MCV 83.3 (80.0-100.0) fL MCH 29.0 (27.0-34.0) pg MCHC 34.8 (32.0-36.0) % RDW 14.4 (11.6-17.2) % Plt Count 204 (150-450) th/mm3 MPV 8.8 (7.0-11.0) fL Neut % (Auto) 76.0 H (16.0-70.0) % Lymph % (Auto) 14.0 (9.0-44.0) % [facility] % (Auto) 8.7 H (0.0-8.0) % Eos % (Auto) 0.7 (0.0-4.0) % Baso % (Auto) 0.6 (0.0-2.0) % Neut # (Auto) 6.1 (1.8-7.7) th/mm3 Lymph # (Auto) 1.1 (1.0-4.8) th/mm3 [facility] # (Auto) 0.7 (0.0-0.9) th/mm3 Eos # (Auto) 0.1 (0.0-0.4) th/mm3 Baso # (Auto) 0.0 (0.0-0.2) th/mm3 WBC Differential . Differential Comment Auto diff final PT 10.2 (9.8-11.6) sec INR 1.0 Ratio APTT 24.7 (24.3-30.1) sec Sodium 138 (136-145) meq/L Potassium 3.2 L (3.5-5.1) meq/L Chloride 102 (98-107) meq/L Carbon Dioxide 23.1 (21.0-32.0) meq/L Anion Gap 13 (5-15) meq/L BUN 15 (7-18) mg/dL Creatinine 1.27 (0.60-1.30) mg/dL Estimated GFR 58 L (>89) mL/min Random Glucose 169 H (74-106) mg/dL Calcium 9.1 D (8.5-10.1) mg/dL Magnesium 2.2 (1.5-2.5) mg/dL Total Bilirubin 0.7 (0.2-1.0) mg/dL AST 18 (15-37) U/L ALT 36 (12-78) U/L Alkaline Phosphatase 67 (45-117) U/L Total Creatine Kinase 39 (39-308) U/L Troponin I Less than 0.02 L (0.02-0.05) ng/mL B-Natriuretic Peptide (0-100) pg/mL Total Protein 8.0 (6.4-8.2) g/dL Albumin 3.8 (3.4-5.0) g/dL 10/14/17 Range/Units 09:45 WBC (4.0-11.0) th/mm3 RBC (4.50-5.90) mil/mm3 Hgb (13.0-17.0) gm/dL Hct (39.0-51.0) % MCV (80.0-100.0) fL MCH (27.0-34.0) pg MCHC (32.0-36.0) % RDW (11.6-17.2) % Plt Count (150-450) th/mm3 MPV (7.0-11.0) fL Neut % (Auto) (16.0-70.0) % Lymph % (Auto) (9.0-44.0) % [facility] % (Auto) (0.0-8.0) % Eos % (Auto) (0.0-4.0) % Baso % (Auto) (0.0-2.0) % Neut # (Auto) (1.8-7.7) th/mm3 Lymph # (Auto) (1.0-4.8) th/mm3 [facility] # (Auto) (0.0-0.9) th/mm3 Eos # (Auto) (0.0-0.4) th/mm3 Baso # (Auto) (0.0-0.2) th/mm3 WBC Differential Differential Comment PT (9.8-11.6) sec INR Ratio APTT (24.3-30.1) sec Sodium (136-145) meq/L Potassium (3.5-5.1) meq/L Chloride (98-107) meq/L Carbon Dioxide (21.0-32.0) meq/L Anion Gap (5-15) meq/L BUN (7-18) mg/dL Creatinine (0.60-1.30) mg/dL Estimated GFR (>89) mL/min Random Glucose (74-106) mg/dL Calcium (8.5-10.1) mg/dL Magnesium (1.5-2.5) mg/dL Total Bilirubin (0.2-1.0) mg/dL AST (15-37) U/L ALT (12-78) U/L Alkaline Phosphatase (45-117) U/L Total Creatine Kinase (39-308) U/L Troponin I (0.02-0.05) ng/mL B-Natriuretic Peptide 8 (0-100) pg/mL Total Protein (6.4-8.2) g/dL Albumin (3.4-5.0) g/dL Imaging Data Attestation: I personally reviewed and interpreted this imaging study as follows : Radiologist's impression: Chest X-Ray 10/14/17 09:19 CONCLUSION: Bibasilar subsegmental atelectasis. Discharge Plan Discharge Disposition Patient Disposition: 30 Still Patient Discharge Condition Condition: Stable Discharge Details Diagnosis: Chest pain Physicians Team ED Provider: Damari Wilson Primary Care Provider: NON STAFF,PROVIDER Attending Provider: Alexander Tomlinson Status ED Status: Admitted Observation Patient
[2017-10-14] MEDS ORDERED: Aspirin 325 MG Tablet PO ONE (09:51)
--- NOTE | 2017-10-14 09:52 | XR ---
EXAM DATE: 10/14/2017 9:50 AM EDT AGE/SEX: 62 years / Male INDICATIONS: Chest pain for 3 hours. CLINICAL DATA: This is the patient's initial encounter. Patient reports that signs and symptoms have been present for 1 day and indicates a pain score of 8/10. MEDICAL/SURGICAL HISTORY: Chronic obstructive pulmonary disease. Myocardial infarction. Caroti d stent. Total of 6 stents, most recent place on 10/12/2017. COMPARISON: [facility] [place], CHEST 2V PA&LAT, 10/11/2017. . FINDINGS: A single AP view of the chest demonstrates linear bibasilar densities without evidence of mass, infil trate or effusion. The cardiomediastinal contours are unremarkable. Osseous structures are intact. CONCLUSION: Bibasilar subsegmental atelectasis. Electronically signed by: Biju Harper MD 10/14/2017 9:51 AM EDT
[2017-10-14] MEDS ORDERED: Acetaminophen 325 MG Tablet PO ONE (10:09)
[2017-10-14 10:37] LABS: Baso % (Auto) 0.6 % (0.0-2.0); Eos # (Auto) 0.1 th/mm3 (0.0-0.4); Eos % (Auto) 0.7 % (0.0-4.0); Hematocrit 36.6 % (39.0-51.0); Hemoglobin 12.8 gm/dL (13.0-17.0); Lymph # (Auto) 1.1 th/mm3 (1.0-4.8); Mean Corpuscular HGB Conc 34.8 % (32.0-36.0); Mean Corpuscular Volume 83.3 fL (80.0-100.0); Mean Platelet Volume 8.8 fL (7.0-11.0); Mono # (Auto) 0.7 th/mm3 (0.0-0.9); Mono % (Auto) 8.7 % (0.0-8.0); Neut # (Auto) 6.1 th/mm3 (1.8-7.7); Platelet Count 204 th/mm3 (150-450); Red Cell Distribution Width 14.4 % (11.6-17.2)
[2017-10-14] MEDS ORDERED: Morphine Inj 4 MG/ML Vial IV.PUSH ONE (10:37)
[2017-10-14 10:41] LABS: Activated Partial Thrombo Time 24.7 sec (24.3-30.1); Prothrombin Time 10.2 sec (9.8-11.6)
[2017-10-14 10:46] LABS: Albumin 3.8 g/dL (3.4-5.0); Anion Gap 13 meq/L (5-15); Aspartate Aminotransferase 18 U/L (15-37); Blood Urea Nitrogen 15 mg/dL (7-18); Calcium 9.1 mg/dL (8.5-10.1); Carbon Dioxide 23.1 meq/L (21.0-32.0); Chloride 102 meq/L (98-107); Glomerular Filtration Rate 58 mL/min (>89); Glucose,Random 169 mg/dL (74-106); Magnesium 2.2 mg/dL (1.5-2.5); Potassium 3.2 meq/L (3.5-5.1); Sodium 138 meq/L (136-145)
[2017-10-14 10:47] LABS: Alanine Aminotransferase 36 U/L (12-78)
[2017-10-14 10:51] LABS: Alkaline Phosphatase 67 U/L (45-117)
[2017-10-14 10:54] LABS: Creatine Kinase 39 U/L (39-308)
[2017-10-14 14:07] LABS: Creatine Kinase 45 U/L (39-308)
--- NOTE | 2017-10-14 15:09 | P.HPCA ---
History of Present Illness Service: Chest pain center Primary Care Physician: PROVIDER NON STAFF [employer] Dr. Mckeon Chief Complaint: Chest pain History of Present Illness: 62-year-old male with known history of coronary artery disease stented by Dr. Mckeon 2 days ago returns today with complaints of chest pain. He has a long and complex history dating back to 2006 when he presented in [place] with similar complaints resulting in placement of a stent. In 2014 he was reevaluated by Dr. Ghada Kumar with placements of 2 additional stents in the left circumflex and one in the mid LAD. He represented recently to this emergency room and was evaluated by Dr. Nelson with an additional placement of a stent in the proximal LAD. He now returns stating that this morning at about 7 he felt nauseous diaphoretic and began have chest pain which is described as a tight feeling in the very low left chest and some discomfort radiating into the left arm. He describes this as 7-8 out of 10 building slowly over a 5-10 minute interval. He took 2 nitroglycerin which resulted in some relief of the pain within about 5 minutes. He contacted his physician's office and was directed to the emergency room. In the emergency room he began to have another episode of cold clammy feeling with nausea and shortness of breath. He was given morphine and additional nitrate with good results. He remains pain-free at this time but is highly apprehensive. Review of Systems All other systems reviewed negative except as stated in [facility] - History History Provided By: Patient - Medical History Medical History: Medical History (Last Updated 10/14/17 @ 15:06 by Alexander Tomlinson MD) Depressed affect (Acute) COPD (chronic obstructive pulmonary disease) (Acute) Old [place] (myocardial infarction) (Acute) Coronary artery disease (Acute) - Surgical History Surgical History: Surgical History (Last Updated 10/14/17 @ 15:08 by Alexander Tomlinson MD) History of coronary artery stent placement (Acute) History of cholecystectomy History of hernia repair History of tonsillectomy History of transurethral prostatectomy Hx of appendectomy - Family History Family History: Family History (Last Reviewed 10/14/17 @ 09:50 by Damari Wilson MD) Mother Coronary artery disease Brother Coronary artery disease Father Coronary artery disease - Tobacco History Second Hand Smoke Exposure: No Tobacco Use In Past 30 Days: No Smoking Status: Former smoker Tobacco Type: Cigarettes Cigarettes Per Day: 3 Years Smoked: 20 - Alcohol History How Often Do You Have a Drink Containing Alcohol: Monthly or less - Substance Use History Substance History: No History of Abuse - Substance Use Type Other Status: Active Route Used: By Mouth Frequency: As needed Comment: Mark Avery - Travel History Recent Travel in the [place] Within the Last 8 Weeks: No Recent Travel Out of the Country Within the Last 8 Weeks: No - Immunization History Tetanus Immunization: Unsure Hx Influenza Vaccine This Season: No Medications and Allergies Active Medications: Active Medications Sodium Chloride (Ns Flush) 2 ml IV.FLUSH UNSCH PRN PRN Reason: FLUSH AFTER USING IV ACCESS Sodium Chloride (Ns Flush) 2 ml IV.FLUSH BID BIB Allergies Allergy/AdvReac Type Severity Reaction Status Date / Time ciprofloxacin Allergy Severe Itching Verified 10/14/17 09:11 lamotrigine Allergy Severe Rash Verified 10/14/17 09:11 tramadol Allergy Severe Anaphylaxis Verified 10/14/17 09:11 gabapentin AdvReac Mild Itching Verified 10/14/17 09:11 Home Medications Medication Instructions Recorded Confirmed Type acetaminophen [Tylenol Extra 1,000 mg PO Q6H PRN 10/11/17 10/11/17 History Strength] albuterol sulfate [Ventolin HFA] 2 puff INHALATION Q6H PRN 10/11/17 10/11/17 History alprazolam [Xanax] 0.25 mg PO TID PRN 10/11/17 10/11/17 History aspirin [Harriet Chewable Aspirin] 81 mg PO DAILY 10/11/17 10/11/17 History budesonide-formoterol [Symbicort] 2 puff INHALATION Q12H 10/11/17 10/11/17 History cholecalciferol (vitamin D3) 2,000 unit PO DAILY 10/11/17 10/11/17 History [Vitamin D3] furosemide [Lasix] 80 mg PO DAILY 10/11/17 10/11/17 History ipratropium-albuterol 3 ml INHALATION Q4-6H PRN 10/11/17 10/11/17 History lactobacillus combination no.4 1 cap PO DAILY 10/11/17 10/11/17 History [Probiotic] metoprolol succinate [Toprol XL] 50 mg PO DAILY 10/11/17 10/11/17 History nitroglycerin [Nitrostat] 0.4 mg SUBLINGUAL Q5-15M PRN 10/11/17 10/11/17 History oxybutynin chloride 5 mg PO TID 10/11/17 10/11/17 History pantoprazole 40 mg PO DAILY 10/11/17 10/11/17 History polyethylene glycol 3350 [Miralax] 17 g PO DAILY PRN 10/11/17 10/11/17 History potassium chloride 10 meq PO DAILY 10/11/17 10/11/17 History tamsulosin 0.4 mg PO BID 10/11/17 10/11/17 History tiotropium bromide [Spiriva 2 puff INHALATION DAILY 10/11/17 10/11/17 History Respimat] topiramate [Topamax] 25 mg PO DAILY 10/11/17 10/11/17 History Exam Vital signs: Vital Signs 10/14/17 09:11 10/14/17 09:23 10/14/17 10:14 Temperature 97.6 F 98.5 F Pulse Rate 117 H 103 H Respiratory Rate 22 16 18 Blood Pressure 159/76 H Pulse Oximetry 97 96 10/14/17 10:34 10/14/17 12:55 10/14/17 14:32 Temperature 97.5 F L Pulse Rate 102 H 84 83 Respiratory Rate 16 16 Blood Pressure 142/71 H 131/72 Pulse Oximetry 98 94 L Intake & Output 10/13/17 10/14/17 10/14/17 18:59 06:59 18:59 Weight 110.677 kg Other: Weight On Admission 110.677 kg Results 10/14/17 09:45 10/14/17 09:45 Cardiac Enzymes 10/14/17 10/14/17 10/14/17 Range/Units 09:45 09:45 12:55 AST 18 (15-37) U/L Troponin I Less than 0.02 L Less than 0.02 L (0.02-0.05) ng/mL B-Natriuretic Peptide 8 (0-100) pg/mL Coagulation 10/14/17 10/14/17 Range/Units 09:45 09:45 PT 10.2 (9.8-11.6) sec APTT 24.7 (24.3-30.1) sec B-Natriuretic Peptide 8 (0-100) pg/mL CBC 10/14/17 Range/Units 09:45 WBC 8.0 (4.0-11.0) th/mm3 RBC 4.40 L (4.50-5.90) mil/mm3 Hgb 12.8 L (13.0-17.0) gm/dL Hct 36.6 L (39.0-51.0) % Plt Count 204 (150-450) th/mm3 Neut # (Auto) 6.1 (1.8-7.7) th/mm3 Lymph # (Auto) 1.1 (1.0-4.8) th/mm3 [facility] # (Auto) 0.7 (0.0-0.9) th/mm3 Eos # (Auto) 0.1 (0.0-0.4) th/mm3 Baso # (Auto) 0.0 (0.0-0.2) th/mm3 Comprehensive Metabolic Panel 10/14/17 Range/Units 09:45 Sodium 138 (136-145) meq/L Potassium 3.2 L (3.5-5.1) meq/L Chloride 102 (98-107) meq/L Carbon Dioxide 23.1 (21.0-32.0) meq/L BUN 15 (7-18) mg/dL Creatinine 1.27 (0.60-1.30) mg/dL Calcium 9.1 D (8.5-10.1) mg/dL AST 18 (15-37) U/L ALT 36 (12-78) U/L Alkaline Phosphatase 67 (45-117) U/L Total Protein 8.0 (6.4-8.2) g/dL Albumin 3.8 (3.4-5.0) g/dL Intake and Output 10/13/17 10/14/17 10/14/17 22:59 06:59 14:59 Other: Weight 110.677 kg Weight On Admission 110.677 kg Patient Weight 10/15/17 06:59 Weight 110.677 kg Caprini VTE Risk Assessment Caprini VTE Risk Assessment: Moderate/High Risk (score >= 2) (Contraindicated due to recent procedure) Caprini Risk Assessment Model: Point Value = 1 Point Value = 2 Point Value = 3 Point Value = 5 Age 41-60 Minor surgery BMI > 25 kg/m2 Swollen legs Varicose veins or History of unexplained or recurrent spontaneous Oral contraceptives or hormone replacement Sepsis (< 1 month) Serious lung disease, including pneumonia (< 1 month) Abnormal pulmonary function Acute myocardial infarction Congestive heart failure (< 1 month) History of inflammatory bowel disease Medical patient at bed rest Age 61-74 Arthroscopic surgery Major open surgery (> 45 min) Laparoscopic surgery (> 45 min) Malignancy Confined to bed (> 72 hours) Immobilizing plaster cast Central venous access Age >= 75 History of VTE Family history of VTE Factor V Leiden Prothrombin [id number] Lupus anticoagulant Anticardiolipin antibodies Elevated serum homocysteine Heparin-induced thrombocytopenia Other congenital or acquired thrombophilia Stroke (< 1 month) Elective arthroplasty Hip, pelvis, or leg fracture Acute spinal cord injury (< 1 month) Prophylaxis Regimen: Total Risk Factor Score Risk Level Prophylaxis Regimen 0-1 Low Early ambulation 2 Moderate Order ONE of the following: *Sequential Compression Device (SCD) *Heparin 5000 units SQ BID 3-4 Higher Order ONE of the following medications: *Heparin 5000 units SQ TID *Enoxaparin/Lovenox 40 mg SQ daily (WT < 150 kg, CrCl > 30 mL/min) *Enoxaparin/Lovenox 30 mg SQ daily (WT < 150 kg, CrCl > 10-29 mL/min) *Enoxaparin/Lovenox 30 mg SQ BID (WT < 150 kg, CrCl > 30 mL/min) AND/OR *Sequential Compression Device (SCD) 5 or more Highest Order ONE of the following medications: *Heparin 5000 units SQ TID (Preferred with Epidurals) *Enoxaparin/Lovenox 40 mg SQ daily (WT < 150 kg, CrCl > 30 mL/min) *Enoxaparin/Lovenox 30 mg SQ daily (WT < 150 kg, CrCl > 10-29 mL/min) *Enoxaparin/Lovenox 30 mg SQ BID (WT < 150 kg, CrCl > 30 mL/min) AND *Sequential Compression Device (SCD) Assessment and Plan - Plan I discussed this patient with Dr. Whyte'rigoberto. He indicates that the stent was placed in the proximal LAD and if he was experiencing stent closure or problems at this time it should be clearly evident in the EKG and he should have unstable symptoms. He also points out that the patient's previous stents were all widely patent. There is also the question that some of his previous procedures may have been precipitated by his constant complaints suggestive of ischemia but perhaps lacking formal documentation. At this point it was felt that we should aggressively ruled him out with a nuclear study. Obviously if positive he will require return to the [facility]ist but if negative further evaluation for noncardiac etiology would be warranted. Discussed Condition With: Discussed this plan with the patient in some detail. The patient emphasizes that he has had some more pain prior to his other procedures and that all of his evaluation in the past has proved to be negative and only took him to the [facility]. - Attending Attestation This patient's presentation meets all criteria for evaluation and treatment as planned. H&P: Quality - VTE Deep Vein Thrombosis/Pulmonary Embolism Present on Admission: No
[2017-10-14 17:15] LABS: Creatine Kinase 37 U/L (39-308)
[2017-10-15] MEDS ORDERED: ALPRAZolam 0.25 MG Tablet PO PRN (00:21)
[2017-10-15] MEDS ORDERED: Polyethylene Glycol 3350 17 GM Packet PO PRN (00:24)
[2017-10-15] MEDS ORDERED: Lactobacillus Acidophilus/L. Spores Tablet PO SCH (09:00)
[2017-10-15] MEDS ORDERED: Budesonide-Formoterol 160/4.5 MCG 6 GM Inhaler INH SCH (09:00)
[2017-10-15] MEDS ORDERED: Furosemide 80 MG Tablet PO SCH (09:00)
[2017-10-15] MEDS ORDERED: Topiramate 25 MG Tablet PO SCH (09:00)
[2017-10-15] MEDS ORDERED: TIOTROPIUM INH SCH (09:00)
[2017-10-15] MEDS ORDERED: Regadenoson Inj 0.4 MG/5 ML Syringe IV.PUSH ONE (10:51)
--- NOTE | 2017-10-15 11:52 | NM ---
EXAM DATE: 10/15/2017 11:44 AM EDT AGE/SEX: 62 years / Male INDICATIONS:Angina. Coronary artery disease Mid chest pain for two days. CLINICAL DATA: This is the patient's initial encounter. Patient reports that signs and symptoms have been present for 2 days and indicates a pain score of 8/10. MEDICAL/SURGICAL HISTORY: Chronic obstructive pulmonary disease. Myocardial infarction. Siddiqi ry artery stent. Cholecystectomy. Appendectomy. COMPARISON: [facility], US ARM VENOUS DOPPLER, LEFT, 01/03/2017. . No external comparison. DOSE: 11.0 mCi Tc 99m Myoview at rest 34.9 mCi [id number] at stress 0.4 mg Lexiscan STRESS SYMPTOMS: Shortness of breath and chest pain. EJECTION FRACTION: >70 % TECHNIQUE: The patient underwent pharmacologic stress with infusion of prescribed dose. Continuous ECG tracing was monitored during stress. Gated SPECT imaging was performed after stress and conventi onal SPECT imaging was performed at rest. The examination was performed on a SPECT/CT scanner, both attenuation and non-corrected datasets were reviewed. FINDINGS: Distribution: The maximum perfused segment at stress is in the inferior wall. Perfusion Study: The pattern of perfusion at stress is within normal limits. Gated Study: There are intact wall motion and wall thickening without hypokinetic or dyskinetic segm ents. The ejection fraction is calculated at >70%. RISK CATEGORY: Low (<1% Annual Motality Rate) CONCLUSION: 1. No significant stress-induced ischemia. 2. Intact wall motion with EF of >70%. Electronically signed by: Jose Miguel Junior MD 10/15/2017 11:51 AM EDT
[2017-10-15 12:00] VITALS: BP 142/78; PULSE 93; RESP 16; TEMP 97.3; O2SAT 97
--- NOTE | 2017-10-15 12:00 | ECG ---
Date Performed: 10/14/2017 Time Performed: 16:07:58 PTAGE: 62 years EKG: Sinus rhythm NORMAL ECG NO PREVIOUS TRACING DOCTOR: Alexander Tomlinson Interpretating Date/Time 10/15/2017 12:00:05
--- NOTE | 2017-10-15 12:02 | ECG ---
Date Performed: 10/14/2017 Time Performed: 13:01:56 PTAGE: 62 years EKG: Sinus rhythm NORMAL ECG NO PREVIOUS TRACING DOCTOR: Alexander Tomlinson Interpretating Date/Time 10/15/2017 12:00:53
--- NOTE | 2017-10-15 12:03 | ECG ---
Date Performed: 10/14/2017 Time Performed: 09:21:00 PTAGE: 62 years EKG: Sinus rhythm NORMAL ECG PREVIOUS TRACING : 10/11/2017 19.34 DOCTOR: Alexander Tomlinson Interpretating Date/Time 10/15/2017 12:01:20
--- NOTE | 2017-10-16 11:58 | TR ---
Date Performed: 10/15/2017 Time Performed: 11:00:40 DOCTOR: Jarrett Watters DRUG LIST: CLINICAL HISTORY: ANGINA REASON FOR TEST: Angina REASON FOR ENDING: OBSERVATION: CONCLUSION: COMMENTS: Lexiscan stress test was performed under standard four minute protocol. Radionuclide was injected one minute prior to ending the test. No electrocardiographic abormalities were present t o suggest ischemia. Nuclear imaging and interpretation are pending.
== END 2017-10-15 12:34 | disposition home or self-care (01) ==
LOC: NEPC 09:10 → NEDA 09:10 → NEPFCDU 12:59
PROVIDERS: ADMIT Internal Medicine Interventional Cardiology; ATTEND Internal Medicine Interventional Cardiology